=== PATIENT | female | born 1940 | race Caucasian/White ===

== ENCOUNTER → 2017-03-30 | Outpatient (CLI) | payer MEDICARE, OTHER | END | disposition home or self-care (01) | LOC: US 10:13 | DX: N63.10 Unspecified lump in the right breast, unspecified quadrant (principal) | CPT/HCPCS: 76942; C1713; G0206 ==

== ENCOUNTER 2017-04-12 07:29 | Inpatient (IN) | payer MEDICARE, OTHER ==
[~2017-04-12 07:29] MED LIST: HYDROmorphone 2 MG/ML VIAL IV; LIDOCAINE 1% PF 2 ML VIAL. ID; MORPHINE SULFATE 2 MG/ML DISP.SYRIN. IV; ONDANSETRON PF 4 MG/2 ML VIAL. IV; fentaNYL PF VIAL 100 MCG/2 ML VIAL IV
[2017-04-12 08:26] LABS: POC GLUCOSE 145 mg/dL (70-99)
[2017-04-12] MEDS: IV RINGERS,LACTATED 1000ML 1,000 ML IV (08:26)
[2017-04-12] MEDS ORDERED: MIDAZOLAM HCL/PF 2 MG/2 ML VIAL. (09:14)
[2017-04-12] MEDS ORDERED: fentaNYL PF VIAL 250 MCG/5 ML VIAL (09:14)
[2017-04-12] MEDS: LIDOCAINE WITH 8.4% SOD BICARB 3 ML DISP.SYRIN. IJ (09:41)
[2017-04-12] MEDS ORDERED: SUCCINYLCHOLINE 200 MG/10 ML VIAL. (10:06)
[2017-04-12] MEDS: ISOSULFAN BLUE 50 MG/5 ML VIAL. SQ (10:11)
[2017-04-12] MEDS ORDERED: ePHEDrine PF IN SALINE 50 MG/5 ML DISP.SYRIN IV (10:59)
[2017-04-12] MEDS ORDERED: SEVOFLURANE > 120 MINUTES. IH (11:40)
[2017-04-12] MEDS ORDERED: PROPOFOL 20 ML IV (11:40)
[2017-04-12] MEDS ORDERED: LIDOCAINE 2% PF Vial for OR 5 ML VIAL. (11:40)
[2017-04-12] MEDS ORDERED: ONDANSETRON PF 4 MG/2 ML VIAL. (11:41)
[2017-04-12] MEDS ORDERED: DEXAMETHASONE SOD PHOS 20 MG/5 ML VIAL. (11:41)
[2017-04-12 12:06] LABS: POC GLUCOSE 133 mg/dL (70-99)
[2017-04-12] MEDS: fentaNYL PF VIAL 100 MCG/2 ML VIAL IV ×2 (12:21→12:38)
[2017-04-12] MEDS: PROCHLORPERAZINE 10 MG/2 ML VIAL. IV (12:21)
[2017-04-12] MEDS ORDERED: diphenhydrAMINE HCL 25 MG CAPSULE PO (13:15)
[2017-04-12] MEDS ORDERED: LORazepam 1 MG TABLET PO (13:15)
[2017-04-12] MEDS ORDERED: 0.9 % SODIUM CHLORIDE 10 ML DISP.SYRIN. IV (13:15)
[2017-04-12] MEDS ORDERED: ONDANSETRON PF 4 MG/2 ML VIAL. IV (13:15)
[2017-04-12] MEDS ORDERED: HYDROcodone/APAP 5/325MG 1 TAB TABLET PO (13:15)
[2017-04-12] MEDS ORDERED: diphenhydrAMINE 50 MG/ML VIAL IV (13:15)
[2017-04-12] MEDS: ENOXAPARIN 40 MG/0.4 ML SYRINGE. SQ ×2 (13:15→16:00)
[2017-04-12] MEDS ORDERED: GLUCOSAMINE SULFATE PO (14:00)
[2017-04-12] MEDS: HYDROmorphone 2 MG/ML VIAL IV ×2 (14:02→19:55)
[2017-04-12] MEDS: POTASSIUM CL 20MEQ-0.45% NACL 1,000 ML IV (14:05)
[2017-04-12] MEDS: HYDROcodone/APAP 5/325MG 1 TAB TABLET PO (16:11)
[2017-04-12] MEDS: CALCIUM CARBONATE 500 MG TABLET PO (17:24)
[2017-04-12] MEDS: CARVEDILOL 12.5 MG TABLET. PO (17:26)
[2017-04-12 20:31] LABS: POC GLUCOSE 187 mg/dL (70-99)
[2017-04-12] MEDS: ATORVASTATIN CALCIUM 20 MG TABLET PO (21:14)
[2017-04-12] MEDS: traMADol 50 MG TABLET PO (21:15)
[2017-04-12] MEDS: DOCUSATE SODIUM 100 MG CAPSULE. PO (21:15)
[2017-04-13] MEDS: HYDROcodone/APAP 5/325MG 1 TAB TABLET PO ×3 (04:02→13:16)
[2017-04-13] MEDS: LEVOTHYROXINE 150 MCG TABLET PO (06:46)
[2017-04-13 07:20] LABS: POC GLUCOSE 153 mg/dL (70-99)
[2017-04-13] MEDS: metFORMIN XR 500 MG TAB.ER.24H PO (08:00)
[2017-04-13] MEDS: ASPIRIN ENTERIC COATED 81 MG TABLET.DR. PO (08:41)
[2017-04-13] MEDS: CARVEDILOL 12.5 MG TABLET. PO (08:41)
[2017-04-13] MEDS: CHOLECALCIFEROL (VITAMIN D3) 1,000 UNIT TABLET PO (08:42)
[2017-04-13] MEDS: traMADol 50 MG TABLET PO (08:42)
[2017-04-13] MEDS: DOCUSATE SODIUM 100 MG CAPSULE. PO (08:43)
[2017-04-13] MEDS: FUROSEMIDE 40 MG TABLET. PO (08:43)
[2017-04-13] MEDS: FOLIC ACID 1 MG TABLET. PO (08:43)
[2017-04-13] MEDS: MULTIVITAMIN with MINERAL TABLET. PO (08:43)
[2017-04-13] MEDS: POTASSIUM CHLORIDE 20 MEQ TABLET.ER. PO (08:44)
[2017-04-13] MEDS: LISINOPRIL 40 MG TABLET. PO (08:44)
[2017-04-13] MEDS: CALCIUM CARBONATE 500 MG TABLET PO (08:47)
[2017-04-13 11:51] LABS: POC GLUCOSE 149 mg/dL (70-99)
== END 2017-04-13 14:35 | disposition home or self-care (01) | DRG 581 ==
LOC: OPSVCIP 07:29 → 4 SOUTHWST 04-13 04:30
PROVIDERS: Surgery
PROC: 07B50ZX Excision of Right Axillary Lymphatic, Open Approach, Diagnostic (ICD-10-PCS; principal; 2017-04-12 09:30)
PROC: 0HTT0ZZ Resection of Right Breast, Open Approach (ICD-10-PCS; 2017-04-12 09:30)
PROC: C71L1ZZ Planar Nuclear Medicine Imaging of Upper Chest Lymphatics using Technetium 99m (Tc-99m) (ICD-10-PCS; 2017-04-12 09:57)
DX: C50.911 Malignant neoplasm of unspecified site of right female breast (principal); E11.9 Type 2 diabetes mellitus without complications; E03.9 Hypothyroidism, unspecified; E78.5 Hyperlipidemia, unspecified; I10 Essential (primary) hypertension; Z96.653 Presence of artificial knee joint, bilateral; Z98.49 Cataract extraction status, unspecified eye; Z90.49 Acquired absence of other specified parts of digestive tract; Z90.711 Acquired absence of uterus with remaining cervical stump
CPT/HCPCS: 38792; 82962; 88307; 88309; 88331; 88332; 88341; 88342; 96374; A9541; J0330; J0690; J0780; J1100; J1170; J2250; J2405; J2704; J3010; J7120; Q9968

== ENCOUNTER → 2017-05-05 | Outpatient (CLI) | payer MEDICARE, OTHER | END | disposition home or self-care (01) | LOC: KCIC DEXA 11:21 | DX: Z13.820 Encounter for screening for osteoporosis (principal); C50.919 Malignant neoplasm of unspecified site of unspecified female breast; E11.9 Type 2 diabetes mellitus without complications; M81.0 Age-related osteoporosis without current pathological fracture; M85.80 Other specified disorders of bone density and structure, unspecified site; Z78.0 Asymptomatic menopausal state | CPT/HCPCS: 77080 ==

== ENCOUNTER → 2017-05-29 | Outpatient (CLI) | payer MEDICARE, OTHER | END | disposition home or self-care (01) | LOC: ECHO 09:34 | DX: I42.9 Cardiomyopathy, unspecified (principal); I08.1 Rheumatic disorders of both mitral and tricuspid valves; I27.20 Pulmonary hypertension, unspecified; I70.0 Atherosclerosis of aorta | CPT/HCPCS: 93306 ==

== ENCOUNTER → 2017-07-28 | Outpatient (CLI) | payer MEDICARE, OTHER | END | disposition home or self-care (01) | LOC: US 07:40 | DX: R22.2 Localized swelling, mass and lump, trunk (principal); Z90.11 Acquired absence of right breast and nipple | CPT/HCPCS: 76604 ==

== ENCOUNTER → 2017-08-16 | Outpatient (CLI) | payer MEDICARE, OTHER | END | disposition home or self-care (01) | LOC: SPEC 16:38 | DX: L02.91 Cutaneous abscess, unspecified (principal); I13.0 Hypertensive heart and chronic kidney disease with heart failure and stage 1 through stage 4 chronic kidney disease, or unspecified chronic kidney disease; E11.22 Type 2 diabetes mellitus with diabetic chronic kidney disease; I50.21 Acute systolic (congestive) heart failure; N18.3 Chronic kidney disease, stage 3 (moderate) | CPT/HCPCS: 87205 ==

== ENCOUNTER → 2017-08-29 | Outpatient (CLI) | payer MEDICARE, OTHER | END | disposition home or self-care (01) | LOC: ECHO 09:46 | DX: I08.1 Rheumatic disorders of both mitral and tricuspid valves (principal) | CPT/HCPCS: 93306 ==

== ENCOUNTER → 2018-07-09 | Outpatient (CLI) | payer MEDICARE, OTHER ==
[2017-10-20 11:00] VITALS: BP 128/73
[~2018-07-09] MED LIST changes: +AMLO10TA8 PO; +AMLO2.5T5 PO; +ASPI-612 PO; +BENA40TA3 PO; +BISA-42 PO; +CALC-98 PO; +CALC600T4 PO; +CARV12.511 PO; +CHOL100014 PO; +COLC0.6T34 PO; +CRESTOR5 MG PO; +EXEM25TA2 PO; +FOLI1TAB16 PO; +FURO-69 PO; +FURO40TA4 PO; +GABA300C18 PO; +GLUC100018 PO; +GLUC1CAP41 PO; +HYDR-2145 PO; +HYDR-3135 PO; +HYDR-3164 PO; -HYDROmorphone 2 MG/ML VIAL IV; +LEVO150T5 PO; -LIDOCAINE 1% PF 2 ML VIAL. ID; +LORA0.5T PO; +LORA1TAB PO; +METF500T9 PO; -MORPHINE SULFATE 2 MG/ML DISP.SYRIN. IV; +MULT-208 PO; +MULT1TAB52 PO; -ONDANSETRON PF 4 MG/2 ML VIAL. IV; +POTA20TA4 PO; +TRAM50TA PO; -fentaNYL PF VIAL 100 MCG/2 ML VIAL IV
--- NOTE | 2018-07-09 15:01 | CARD ---
MR#: [id number] Date of Study: 07/09/2018 Ordering Physician: MARCO ANTONIO ROCHA, Referring Physician: MARCO ANTONIO ROCHA, Tech: Sri Valverde [facility] APPROVED REPORT EXAM: Two-dimensional and M-mode echocardiogram with Doppler and color Doppler. Other Information Quality : AverageHR: 77bpm Rhythm : Pacemaker INDICATION Shortness of breath 2D DIMENSIONS RVDd2.7 (2.9-3.5cm)Left Atrium(2D)4.7 (1.6-4.0cm) IVSd1.1 (0.7-1.1cm)Aortic Root(2D)2.6 (2.0-3.7cm) LVDd6.7 (3.9-5.9cm)LVOT Diameter1.8 (1.8-2.4cm) PWd0.9 (0.7-1.1cm)LVDs5.8 (2.5-4.0cm) FS (%) 14.3 %SV69.7 ml LVEF(%)29.7 (>50%) Aortic Valve AoV Peak Andrew.132.0cm/sAoV VTI32.2cm AO Peak GR.7.0mmHgLVOT Peak Andrew.90.8cm/s AO Mean GR.4mmHgAVA (VMAX)1.82cm2 ROMAN (VTI)1.80cm2 Mitral Valve MV E Bxfqlgds771.1cm/sMV E Peak Gr.7mmHg MV DECEL [id number] A Skdtvome140.9cm/s MV E Mean Gr.3mmHgE/A Ratio0.9 MV A [id number] Pulmonary Valve PV Peak Hosjahbl45.0cm/s Pulmonary Vein S1 Rynxlxep81.0cm/sD2 Cmfeatzh96.8cm/s PVa [id number] LEFT VENTRICLE The Left Ventricle is moderately dilated. There is normal left ventricular wall thickness. The ejecti on fraction is moderately impaired. The Ejection Fraction is 40-45%. There is global hypokinesis of t he left ventricle. Transmitral Doppler flow pattern is Grade II-pseudonormal filling dynamics. RIGHT VENTRICLE The right ventricle is normal size. There is normal right ventricular wall thickness. The right ventr icular systolic function is normal. ATRIA The left atrium is moderately dilated. The right atrium is mildly dilated. The interatrial septum is intact with no evidence for an atrial septal defect or patent foramen ovale as noted on 2-D or Dopple r imaging. AORTIC VALVE The aortic valve is normal in structure and function. The aortic valve is trileaflet. Doppler and Col or Flow revealed no significant aortic regurgitation. There is no significant aortic valvular stenosi s. There is no aortic valvular vegetation. MITRAL VALVE The mitral valve leaflets are thickened and calcified. There is no evidence of mitral valve prolapse. There is mild mitral valve stenosis. Calculated mitral valve area is 1.5 cm2 with maximum pressure g radient of 7 mmHg and mean pressure gradient of 4 mmHg. Doppler and Color-flow revealed moderate mitr al regurgitation. TRICUSPID VALVE The tricuspid valve is normal in structure and function. Doppler and Color Flow revealed no tricuspid valve regurgitation noted. There is no tricuspid valve prolapse or vegetation. There is no tricuspid valve stenosis. PULMONIC VALVE The pulmonic valve is not well visualized. GREAT VESSELS The aortic root is normal in size. The ascending aorta is normal in size. The IVC is normal in size a nd collapses >50% with inspiration. PERICARDIAL EFFUSION There is no evidence of significant pericardial effusion. Critical Notification Critical Value: No <Conclusion> The ejection fraction is moderately impaired. The Ejection Fraction is 40-45%. There is global hypokinesis of the left ventricle. Doppler and Color-flow revealed moderate mitral regurgitation. Signed by : Cal Zarate, Electronically Approved : 07/09/2018 15:00:51
== END | disposition home or self-care (01) ==
LOC: ECHO 13:02
PROVIDERS: ATTEND Internal Medicine Cardiovascular Disease
DX: I34.0 Nonrheumatic mitral (valve) insufficiency (principal)
CPT/HCPCS: 93306

== ENCOUNTER → 2018-08-16 | Outpatient (CLI) | payer MEDICARE, OTHER ==
[2017-10-20 11:00] VITALS: BP 128/73
--- NOTE | 2018-08-16 14:46 | RAD ---
Chest, 2 views, 08/16/2018: HISTORY: Shortness of breath Comparison is made to a study from 10/19/2017. The heart is enlarged. The pulmonary vascularity is normal. No pulmonary infiltrate is seen. There is no evidence of pleural fluid. Moderate hypertrophic spurring is present in the spine. IMPRESSION: 1. Cardiomegaly. 2. No acute abnormality is detected. Electronically signed by: Everette Person MD (08/16/2018 2:43 PM) [facility]
== END | disposition home or self-care (01) ==
LOC: RAD 11:02
PROVIDERS: ATTEND Internal Medicine Pulmonary Disease
DX: I51.7 Cardiomegaly (principal); M46.00 Spinal enthesopathy, site unspecified
CPT/HCPCS: 71046

== ENCOUNTER → 2018-08-30 | Outpatient (CLI) | payer MEDICARE, OTHER ==
[2017-10-20 11:00] VITALS: BP 128/73
--- NOTE | 2018-09-04 12:38 | SLEEP ---
DATE OF STUDY: 08/30/2018 ATTENDING PHYSICIAN: Dr. Yuki Grimes. REFERRING PHYSICIAN: Dr. Ray. The patient is 77 years old who weighs 212 pounds with a BMI of 37. The patient's Fairview score was 7. The patient underwent a diagnostic sleep study performed at [facility]. During the night study, the patient spent 426 minutes in bed and slept for 384 minutes with a normal sleep efficiency of 90%. Sleep latency was 5 minutes with an absent REM sleep. Overall, sleep architecture showed increased stage 1 and stage 2 sleep, absent N3 sleep and absent REM sleep. During the night study, the patient had 15 obstructive apneas, 3 mixed apneas, no central apneas and 111 hypopneas. The patient's apnea hypopnea index was 20 per hour, supine index 20 per hour. REM sleep was not observed. EKG monitoring revealed normal sinus rhythm. No sustained arrhythmias were observed. Nocturnal oximetry study revealed an average oxygen saturation of 92% with the lowest of 88%, 5.7% of time oxygen saturation remained between 80% and 89%. PLMS were not observed. Due to low AHI, the patient did not meet the split night criteria for CPAP initiation. IMPRESSION: 1. Moderate sleep apnea-hypopnea syndrome at an AHI of 20 per hour. Absence of REM sleep can underestimate the severity of sleep apnea. 2. Mild nocturnal hypoxia secondary to obstructive sleep apnea. 3. No clinically significant PLMS. RECOMMENDATIONS: 1. The patient would benefit from return to the sleep lab for CPAP titration study. Alternate treatment option would include oral appliance as recommended by the dentist. 2. Once the patient is optimally treated, then follow up in 4-6 weeks to assess compliance with treatment and to document clinical improvement. 3. Weight loss is advised. 4. Avoid LAUNCHMAN depressants. 5. Caution regarding driving until symptoms of sleep apnea resolve with the above recommendations. MARVA MARTÍNEZ MD DR: VELIA/megha JOB#: [id number] / [id number] YUKI Starkey MD, SABATO MD
== END | disposition home or self-care (01) ==
LOC: RT 19:14
PROVIDERS: ATTEND Internal Medicine Pulmonary Disease
DX: G47.33 Obstructive sleep apnea (adult) (pediatric) (principal); G47.34 Idiopathic sleep related nonobstructive alveolar hypoventilation
CPT/HCPCS: 95810

== ENCOUNTER → 2018-10-10 | Outpatient (CLI) | payer MEDICARE, OTHER ==
[2017-10-20 11:00] VITALS: BP 128/73
--- NOTE | 2018-10-11 13:12 | SLEEP ---
DATE OF STUDY: 10/10/2018 ATTENDING PHYSICIAN: Peggy Grimes MD. REFERRING PHYSICIAN: Hunter Ray MD. The patient is 77 years old who weighs 219 pounds with a BMI of 36. The patient's Stanton score was 13. The patient had a diagnostic sleep study on 08/30/2018, was found to have moderate ANNIKA at an AHI of 20 per hour. REM sleep was not seen on the night study. The patient was referred back for CPAP titration study. During the night study, the patient spent 419 minutes in bed and slept for 391 minutes with an excellent sleep efficiency of 93%. Sleep latency was 10 minutes with absent REM sleep. Overall, sleep architecture showed normal stage 1 sleep, increased stage 2 sleep, absent slow wave and absent REM sleep. EKG monitoring revealed normal sinus rhythm, average heart rate was 59 beats per minute. No arrhythmias observed. No clinically significant PLM seen. The patient was started on CPAP at a pressure of 5 cm water and titrated up to 16 cm of water. At the final pressure, the patient slept for 94 minutes. The patient had supine sleep, but no REM sleep. The patient's AHI was reduced to 2 per hour and oxygen saturations remained above 91%. The patient used a medium size full face mask. IMPRESSION: 1. Moderate sleep apnea diagnosed by previous sleep study. 2. No clinically significant periodic limb movements. RECOMMENDATIONS: 1. CPAP at 16 cm water completely eliminated the patient's sleep apnea and should be used on a nightly basis. 2. Follow up in 4-6 weeks to assess compliance with CPAP and to document clinical improvement. 3. Weight loss is strongly advised. 4. Avoid PIE MAKER depressants. 5. Caution regarding driving until symptoms of sleep apnea resolve with the use of CPAP. 6. The patient used medium size full face mask. MARVA MARTÍNEZ MD DR: VELIA/megha JOB#: [id number] / [id number]
== END | disposition home or self-care (01) ==
LOC: RT 18:56
PROVIDERS: ATTEND Internal Medicine Pulmonary Disease
DX: G47.33 Obstructive sleep apnea (adult) (pediatric) (principal)
CPT/HCPCS: 95811

== ENCOUNTER 2019-02-06 11:28 | Inpatient (IN) | payer MEDICARE, OTHER ==
[~2019-02-06] VITALS: Ht 167.6 cm; Wt 97.5 kg
[~2019-02-06 11:28] MED LIST changes: +METF500T11 PO; -METF500T9 PO
[2019-02-06] MEDS ORDERED: IV NORMAL SALINE 1000ML BAG 1,000 ML IV SCH (12:10)
[2019-02-06 12:52] LABS: BASO # 0.1 x10^3/uL (0.0-0.2); BASO % 1 % (0-3); EOS # 0.2 x10^3/uL (0.0-0.7); EOS % 2 % (0-3); HEMATOCRIT 39.9 % (36.0-47.0); HEMOGLOBIN 13.6 g/dL (12.0-15.5); LYMPH # 1.2 x10^3/uL (1.0-4.8); LYMPH % 13 % (24-48); MEAN CORPUSCULAR HEMOGLOBIN 32 pg (25-35); MEAN CORPUSCULAR HGB CONC 34 g/dL (31-37); MEAN CORPUSCULAR VOLUME 93 fL (79-100); MONO # 0.8 x10^3/uL (0.0-1.1); MONO % 8 % (0-9); NEUT # 7.4 x10^3/uL (1.8-7.7); NEUT % 77 % (31-73); PLATELET COUNT 167 x10^3/uL (140-400); RED BLOOD COUNT 4.29 x10^6/uL (3.50-5.40); RED CELL DISTRIBUTION WIDTH 14.4 % (11.5-14.5); WHITE BLOOD COUNT 9.7 x10^3/uL (4.0-11.0)
[2019-02-06 13:01] LABS: PROTHROMBIN TIME PATIENT 14.9 SEC (11.7-14.0)
[2019-02-06 13:04] LABS: CALCIUM 8.5 mg/dL (8.5-10.1); CREATININE 1.8 mg/dL (0.6-1.0); GFR 27.1; POTASSIUM 3.4 mmol/L (3.5-5.1)
[2019-02-06 13:17] LABS: ALBUMIN 2.9 g/dL (3.4-5.0); ALBUMIN/GLOBULIN RATIO 0.9 (1.0-1.7); MAGNESIUM 1.2 mg/dL (1.8-2.4); TOTAL BILIRUBIN 0.6 mg/dL (0.2-1.0); TOTAL PROTEIN 6.1 g/dL (6.4-8.2)
--- NOTE | 2019-02-06 13:19 | EKG ---
[facility] [address] [place] [address] Test Date: 2019-02-06 Test Time: 12:54:39 Pat Name: KENDY REYES Department: Room: Gender: F [employer]visor [employer]: : 1940 Requested By: KATIE MIGUEL Order Number: [id number] Reading MD: Measurements Intervals [place] Rate: 62 P: 39 OR: 164 QRS: 1 QRSD: 114 T: 31 QT: 484 QTc: 494 Interpretive Statements SINUS RHYTHM PROLONGED QT NO SPECIFIC ECG ABNORMALITIES RI6.01 No previous ECG available for comparison
[2019-02-06 13:50] LABS: BILIRUBIN,URINE NEGATIVE (NEG); CLARITY,URINE CLOUDY; COLOR,URINE YELLOW; NITRITE,URINE POSITIVE (NEG); PROTEIN,URINE 100 mg/dL (NEG-TRACE); UROBILINOGEN,URINE 0.2 mg/dL (0.2 mg/dL)
[2019-02-06 13:56] LABS: RBC,URINE OCC /HPF (0-2)
[2019-02-06 13:57] LABS: BACTERIA,URINE MANY /HPF (0-FEW); SQUAMOUS EPITHELIAL CELL,UR FEW /LPF; WBC,URINE >40 /HPF (0-4)
--- NOTE | 2019-02-06 14:36 | RAD ---
CT Head without contrast 02/06/2019 12:48 PM Indication: Fall., Dizziness Comparison: None Findings: No intracranial hemorrhage is seen. No evidence of acute territorial infarct is seen. Note that CT is limited in sensitivity for acute ischemia. Age-related atrophic changes are noted. There is mild patchy periventricular and deep white matter hypoattenuation which is nonspecific, but most commonly relates to chronic small vessel disease. No abnormal extra axial fluid collection is identified. No mass effect or midline shift is seen. No acute osseous abnormalities are seen. Impression: 1. No acute intracranial process identified 2. Mild Age-related atrophy, and evidence of chronic small vessel disease as described CT DOSING PQRS STATEMENT: One or more of the following individualized dose reduction techniques were utilized for this examination: 1. Automated exposure control 2. Adjustment of the mA and/or kV according to patient size 3. Use of iterative reconstruction technique Electronically signed by: Maulik Carrasco MD (02/06/2019 2:33 PM) [facility]
--- NOTE | 2019-02-06 14:47 | PHYS DOC ---
Past Medical History Past Medical History: CHF, Diabetes-Type II, Hypertension, Hypothyroid, Other Additional Past Medical Histor: CHRONIC BACK PAIN,NEUROPATHY,CHRONIC DIARRHEA & BLOOD IN STOOL Past Surgical History: Hysterectomy, Tonsillectomy, Other Additional Past Surgical Histo: BACK,HEMORRHOID,KNEE,THYROID X 2,RETINA REATTACHMENT,CATARACT,CARPAL TUNNEL Alcohol Use: None Drug Use: None Adult General Chief Complaint Chief Complaint: WEAKNESS/GENERALIZED HPI HPI Patient is a 78 year old female patient history of chronic diarrhea who presents with complaining of diarrhea and weakness and fall. Patient states she has had increase of diarrhea and had more than 10 episodes of diarrhea every day and complaining of generalized weakness and he states she had 2 falls 5 days ago with dizziness and possible loss of consciousness. She denies chest pain, shortness of breath, focal neuro deficit, urinary symptom. Patient states she is taking care of her sick at home and unable to taking care of him as of her illness. Review of Systems Review of Systems Constitutional: Denies fever or chills [] Eyes: Denies change in visual acuity, redness, or eye pain [] HENT: Denies nasal congestion or sore throat [] Respiratory: Denies cough or shortness of breath [] Cardiovascular: No additional information not addressed in HPI [] GI: Denies abdominal pain, nausea, vomiting, bloody stools, reports diarrhea [] : Denies dysuria or hematuria [] Musculoskeletal: Denies back pain or joint pain [] Integument: Denies rash or skin lesions [] Neurologic: Denies headache, focal weakness or sensory changes [] Endocrine: Denies polyuria or polydipsia [] All other systems were reviewed and found to be within normal limits, except as documented in this note. Current Medications Current Medications Current Medications Medications (Trade) Dose Ordered Sig/Hesham Start Time Stop Time Status Last Admin Dose Admin Sodium Chloride 1,000 ml @ 200 mls/hr Q5H 02/06/19 12:10 02/06/19 15:40 DC 02/06/19 13:19 200 MLS/HR Allergies Allergies Allergies Coded Allergies Type Severity Reaction Last Updated Verified Sulfa (Sulfonamide Antibiotics) Allergy Intermediate HIVES 04/10/17 Yes morphine Adverse Reaction Intermediate Nausea 04/10/17 Yes Physical Exam Physical Exam Constitutional: Well developed, well nourished, mild distress, non-toxic appearance. [] HENT: Normocephalic, atraumatic. Eyes: PERRLA, EOMI, conjunctiva normal, no discharge. [] Neck: Normal range of motion, no tenderness, supple, no stridor. [] Cardiovascular:Heart rate regular rhythm, no murmur [] Lungs & Thorax: Bilateral breath sounds clear to auscultation [] Abdomen: Bowel sounds normal, soft, no tenderness, no masses, no pulsatile masses. [] Skin: Warm, dry, no erythema, no rash. [] Back: No tenderness, no CVA tenderness. [] Extremities: No tenderness, no cyanosis, no clubbing, ROM intact, no edema. [] Neurologic: Alert and oriented X 3, no focal deficits noted. [] Psychologic: Affect normal, judgement normal, mood normal. [] Current Patient Data Vital Signs Vital Signs Date Time Temp Pulse Resp B/P (MAP) Pulse Ox O2 Delivery O2 Flow Rate FiO2 02/06/19 14:05 66 20 97 02/06/19 11:35 97.5 150/67 (94) Room Air 97.5 Lab Values Laboratory Tests Test 02/06/19 12:30 02/06/19 13:40 White Blood Count 9.7 x10^3/uL (4.0-11.0) Red Blood Count 4.29 x10^6/uL (3.50-5.40) Hemoglobin 13.6 g/dL (12.0-15.5) Hematocrit 39.9 % (36.0-47.0) Mean Corpuscular Volume 93 fL (79-100) Mean Corpuscular Hemoglobin 32 pg (25-35) Mean Corpuscular Hemoglobin Concent 34 g/dL (31-37) Red Cell Distribution Width 14.4 % (11.5-14.5) Platelet Count 167 x10^3/uL (140-400) Neutrophils (%) (Auto) 77 % (31-73) H Lymphocytes (%) (Auto) 13 % (24-48) L Monocytes (%) (Auto) 8 % (0-9) Eosinophils (%) (Auto) 2 % (0-3) Basophils (%) (Auto) 1 % (0-3) Neutrophils # (Auto) 7.4 x10^3/uL (1.8-7.7) Lymphocytes # (Auto) 1.2 x10^3/uL (1.0-4.8) Monocytes # (Auto) 0.8 x10^3/uL (0.0-1.1) Eosinophils # (Auto) 0.2 x10^3/uL (0.0-0.7) Basophils # (Auto) 0.1 x10^3/uL (0.0-0.2) Prothrombin Time 14.9 SEC (11.7-14.0) H Prothrombin Time INR 1.2 (0.8-1.1) H Sodium Level 142 mmol/L (136-145) Potassium Level 3.4 mmol/L (3.5-5.1) L Chloride Level 104 mmol/L (98-107) Carbon Dioxide Level 25 mmol/L (21-32) Anion Gap 13 (6-14) Blood Urea Nitrogen 28 mg/dL (7-20) H Creatinine 1.8 mg/dL (0.6-1.0) H Estimated GFR (Cockcroft-Gault) 27.1 BUN/Creatinine Ratio 16 (6-20) Glucose Level 171 mg/dL (70-99) H Lactic Acid Level 1.1 mmol/L (0.4-2.0) Calcium Level 8.5 mg/dL (8.5-10.1) Magnesium Level 1.2 mg/dL (1.8-2.4) L Total Bilirubin 0.6 mg/dL (0.2-1.0) Aspartate Amino Transferase (AST) 11 U/L (15-37) L Alanine Aminotransferase (ALT) 11 U/L (14-59) L Alkaline Phosphatase 75 U/L (46-116) Creatine Kinase 62 U/L (26-192) Troponin I Quantitative 0.080 ng/mL (0.000-0.055) NW-Erv-F-Type Natriuretic Peptide 90298 pg/mL (0-449) H Total Protein 6.1 g/dL (6.4-8.2) L Albumin 2.9 g/dL (3.4-5.0) L Albumin/Globulin Ratio 0.9 (1.0-1.7) L Lipase 37 U/L (73-393) L Urine Collection Type U cath Urine Color Yellow Urine Clarity Cloudy Urine pH 5.0 Urine Specific [place] 1.015 Urine Protein 100 mg/dL (NEG-TRACE) Urine Glucose (UA) Negative mg/dL (NEG) Urine Ketones (Stick) Negative mg/dL (NEG) Urine Blood Moderate (NEG) Urine Nitrite Positive (NEG) Urine Bilirubin Negative (NEG) Urine Urobilinogen Dipstick 0.2 mg/dL (0.2 mg/dL) Urine Leukocyte Esterase Large (NEG) Urine RBC Occ /HPF (0-2) Urine WBC >40 /HPF (0-4) Urine Squamous Epithelial Cells Few /LPF Urine Transitional Epithelial Cells Occ /LPF Urine Bacteria Many /HPF (0-FEW) Laboratory Tests 02/06/19 12:30 Laboratory Tests 02/06/19 12:30 EKG EKG EKG interpreted by me. EKG at 1254 showed normal sinus rhythm at rate of 62, prolonged QT at 484, no acute ST and T-wave elevation. Radiology/Procedures Radiology/Procedures [][facility] [address] [place] [address] IMAGING REPORT Signed PATIENT: KENDY REYES ACCOUNT: [id number] : 1940 LOCATION: ER AGE: 78 SEX: F EXAM STATUS: REG ER ORD. PHYSICIAN: KATIE MIGUEL MD REASON: dizziness and fall PROCEDURE: CT HEAD WO CONTRAST CT Head without contrast 02/06/2019 12:48 PM Indication: Fall., Dizziness Comparison: None Findings: No intracranial hemorrhage is seen. No evidence of acute territorial infarct is seen. Note that CT is limited in sensitivity for acute ischemia. Age-related atrophic changes are noted. There is mild patchy periventricular and deep white matter hypoattenuation which is nonspecific, but most commonly relates to chronic small vessel disease. No abnormal extra axial fluid collection is identified. No mass effect or midline shift is seen. No acute osseous abnormalities are seen. Impression: 1. No acute intracranial process identified 2. Mild Age-related atrophy, and evidence of chronic small vessel disease as described CT DOSING PQRS STATEMENT: One or more of the following individualized dose reduction techniques were utilized for this examination: 1. Automated exposure control 2. Adjustment of the mA and/or kV according to patient size 3. Use of iterative reconstruction technique Electronically signed by: Maulik Cain MD (02/06/2019 2:33 PM) [facility] DICTATED and SIGNED BY: MAULIK CAIN MD DATE: 02/06/19 1433 Course & Med Decision Making Course & Med Decision Making Pertinent Labs and Imaging studies reviewed. (See chart for details) Evaluation of patient in ER showed 78 old female patient with complaining of diarrhea and generalized weakness and fall because of dizziness. Magnesium was 1.2. Labs showed UTI without elevation of lactic acid or leukocytosis.labs showed elevation of troponin and BNP without change compared to previous numbers. Patient requiring admission for further evaluation and treatment. Discussed with Dr. Celaya who is in agreement with admission. Discussed findings and plan with patient and family, who acknowledge understanding and agreement. Dragon Disclaimer Dragon Disclaimer This electronic medical record was generated, in whole or in part, using a voice recognition dictation system. Departure Departure Impression: Primary Impression: Generalized weakness Additional Impressions: Diarrhea CHF (congestive heart failure) Fall Elevated troponin I level Urinary tract infection Hypomagnesemia Disposition: 09 ADMITTED INPATIENT (at 1431) Admitting Physician: MIGUE (Dr. Verdugo accepted admission at 1430) Condition: IMPROVED Referrals: YUKI KEMP MD (PCP) Problem Qualifiers Additional Impressions: Diarrhea Diarrhea type: unspecified type Qualified Codes: R19.7 - Diarrhea, unspecified CHF (congestive heart failure) Heart failure type: unspecified Heart failure chronicity: unspecified Qualified Codes: I50.9 - Heart failure, unspecified Fall Encounter type: sequela Qualified Codes: W19.XXXS - Unspecified fall, sequela Urinary tract infection Urinary tract infection type: site unspecified Hematuria presence: without hematuria Qualified Codes: N39.0 - Urinary tract infection, site not specified KATIE MIGUEL MD Feb 06, 2019 14:47
[2019-02-06] MEDS ORDERED: ONDANSETRON PF 4 MG/2 ML VIAL. IV PRN (15:00)
--- NOTE | 2019-02-06 15:43 | PDOC1 ---
History and Physical Date of Admission Date of Admission DATE: 02/06/19 TIME: 15:35 Source Source: Chart review, Patient History of Present Illness History of Present Illness MS. Patricia presented today with weakness, lethagy, abd pain and diarrhea for 5 days. She also complains of 2 falls recently, she feels like she "blacks out' then falls, and has no prior report of syncope, Her protection officer is Dr. Cespedes, and her heart disease, she thinks has been stable she cares for her at home, who has had a stroke recently, and she has not been too weak to do so, and is concerned by the falls, She has CHF, but she feels dry and is very thirsty, asked me for ice water in the ER Past Medical History Cardiovascular: CHF, HTN, Hyperlipidemia, Other Pulmonary: No pertinent hx GI: Diverticulosis, Hemorrhoids Heme/Onc: Anemia NOS, Cancer Hepatobiliary: No pertinent hx Psych: No pertinent hx Musculoskeletal: low back pain Rheumatologic: No pertinent hx Infectious disease: No pertinent hx Renal/: Chronic renal insuff Endocrine: Diabetes, Hypothyroidism Past Surgical History Past Surgical History: Breast Biopsy, Cataract Removal, Mastectomy, Hysterectomy, Other Family History Family History: Cancer Social History Smoke: No ALCOHOL: rare Drugs: None Current Problem List Problem List Problems Medical Problems: (1) Diarrhea Status: Acute (2) Elevated troponin I level Status: Acute (3) Fall Status: Acute (4) Generalized weakness Status: Acute Current Medications Current Medications Current Medications Sodium Chloride 1,000 ml @ 200 mls/hr Q5H IV Last administered on 02/06/19at 13:19; Start 02/06/19 at 12:10; Stop 02/06/19 at 17:09 Ondansetron HCl (Zofran) 4 mg PRN Q8HRS PRN IV NAUSEA/VOMITING; Start 02/06/19 at 15:00; Stop 02/06/19 at 20:00 Active Scripts Active Amlodipine Besylate 2.5 Mg Tablet 2.5 Mg PO DAILY 30 Days Colcrys (Colchicine) 0.6 Mg Tablet 1 Tab PO BID Klor-Con M20 (Potassium Chloride) 20 Meq Tab.er.prt 20 Meq PO DAILYWBKFT 30 Days Aspirin Ec (Aspirin) 81 Mg Tablet. 81 Mg PO DAILYWBKFT 30 Days Reported Dulcolax (Bisacodyl) 5 Mg Tablet.dr 5 Mg PO PRN DAILY PRN Exemestane 25 Mg Tablet 25 Mg PO DAILY Gabapentin 300 Mg Capsule 300 Mg PO BID Multivitamins (Multivitamin) 1 Each Tablet 1 Tab PO DAILY Glucosamine (Glucosamine Sulfate 2KCL) 1,000 Mg Tablet 500 Mg PO TID Calcium (Calcium Carbonate) 600 Mg Tablet 600 Mg PO BID Carvedilol 12.5 Mg Tablet 12.5 Mg PO BID Lasix (Furosemide) 20 Mg Tablet 20 Mg PO DAILY [place] 10-325 Tablet (Acetaminophen/Hydrocodone Bitart) 1 Each Tablet 1 Tab PO PRN Q4-6HRS PRN Tramadol Hcl 50 Mg Tablet 1 Tab PO BID Folic Acid 1 Mg Tablet 400 Mcg PO DAILY Vitamin D3 (Cholecalciferol (Vitamin D3)) 1,000 Unit Capsule 1,000 Unit PO BID Levothyroxine Sodium 150 Mcg Tablet 1 Tab PO DAILY-2TABS WED-SAT Crestor (Rosuvastatin Calcium) 5 Mg Tablet 1 Tab PO DAILY Allergies Allergies: Coded Allergies: Sulfa (Sulfonamide Antibiotics) (Verified Allergy, Intermediate, HIVES, 04/10/17) morphine (Verified Adverse Reaction, Intermediate, Nausea, 04/10/17) ROS General: No: Chills, Night Sweats, Fatigue, Malaise, Appetite, Other PSYCHOLOGICAL ROS: No: Anxiety, Behavioral Disorder, Concentration difficultie, Decreased libido, Depression, Disorientation, Hallucinations, Hostility, Irritablity, Memory difficulties, Mood Swings, Obsessive thoughts, Physical abuse, Sexual abuse, Sleep disturbances, Suicidal ideation, Other Eyes: No Blurry vision, No Decreased vision, No Double vision, No Dry eyes, No Excessive tearing, No Eye Pain, No Itchy Eyes, No Loss of vision, No Photophobia, No Scotomata, No Uses contacts, No Uses glasses, No Other HEENT: YES: Other (dry mouth); No: Heacaches, Visual Changes, Hearing change, Nasal congestion, Nasal discharge, Oral lesions, Sinus pain, Sore Throat, Epistaxis, Sneezing, Snoring, Tinnitus, Vertigo, Vocal changes Respiratory: YES: Cough; No: Hemoptysis, Orthopnea, Pleuritic Pain, Shortness of breath, SOB with excertion, Sputum Changes, Stridor, Tachypnea, Wheezing, Other Cardiovascular: No Chest Pain, No Palpitations, No Orthopnea, No Paroxysmal Noc. Dyspnea, No Edema, No Lt Headedness, No Other Gastrointestinal: Yes Nausea, Yes Abdominal Pain, Yes Diarrhea Genitourinary: No Dysuria, No Frequency, No Incontinence, No Hematuria, No Retention, No Discharge, No Urgency, No Pain, No Flank Pain, No Other, No , No , No , No , No , No , No Musculoskeletal: Yes Joint Pain, Yes Joint Stiffness, Yes Muscular Weakness Neurological: No Behavorial Changes, No Bowel/Bladder ControlChng, No Confusion, No Dizziness, No Gait Disturbance, No Headaches, No Impaired Coord/balance, No Memory Loss, No Numbness/Tingling, No Seizures, No Speech Problems, No Tremors, No Visual Changes, No Weakness, No Other Skin: No Dry Skin, No Eczema, No Hair Changes, No Lumps, No Mole Changes, No Mottling, No Nail Changes, No Pruritus, No Rash, No Skin Lesion Changes, No Other, No Acne Physical Exam General: Alert, Cooperative, mild distress HEENT: PERRLA, Mucous membr. moist/pink Lungs: Clear to auscultation Heart: no gallops, no murmurs, irregularly irregular Abdomen: Normal bowel sounds Male Genitals Exam: normal genitalia Extremities: No cyanosis, Normal pulses, Other (tr edema) Skin: No rashes, No significant lesion, Other (dry skin, poor turgor) Neuro: Normal speech, Normal tone, Cranial nerves 3-12 NL Psych/Mental Status: Mental status NL Vitals Vitals Vital Signs Date Time Temp Pulse Resp B/P (MAP) Pulse Ox O2 Delivery O2 Flow Rate FiO2 02/06/19 14:35 69 02/06/19 14:05 20 97 02/06/19 11:35 97.5 150/67 (94) Room Air 97.5 Labs Labs Laboratory Tests Test 02/06/19 12:30 02/06/19 13:40 White Blood Count 9.7 x10^3/uL (4.0-11.0) Red Blood Count 4.29 x10^6/uL (3.50-5.40) Hemoglobin 13.6 g/dL (12.0-15.5) Hematocrit 39.9 % (36.0-47.0) Mean Corpuscular Volume 93 fL (79-100) Mean Corpuscular Hemoglobin 32 pg (25-35) Mean Corpuscular Hemoglobin Concent 34 g/dL (31-37) Red Cell Distribution Width 14.4 % (11.5-14.5) Platelet Count 167 x10^3/uL (140-400) Neutrophils (%) (Auto) 77 % (31-73) Lymphocytes (%) (Auto) 13 % (24-48) Monocytes (%) (Auto) 8 % (0-9) Eosinophils (%) (Auto) 2 % (0-3) Basophils (%) (Auto) 1 % (0-3) Neutrophils # (Auto) 7.4 x10^3/uL (1.8-7.7) Lymphocytes # (Auto) 1.2 x10^3/uL (1.0-4.8) Monocytes # (Auto) 0.8 x10^3/uL (0.0-1.1) Eosinophils # (Auto) 0.2 x10^3/uL (0.0-0.7) Basophils # (Auto) 0.1 x10^3/uL (0.0-0.2) Prothrombin Time 14.9 SEC (11.7-14.0) Prothromb Time International Ratio 1.2 (0.8-1.1) Sodium Level 142 mmol/L (136-145) Potassium Level 3.4 mmol/L (3.5-5.1) Chloride Level 104 mmol/L (98-107) Carbon Dioxide Level 25 mmol/L (21-32) Anion Gap 13 (6-14) Blood Urea Nitrogen 28 mg/dL (7-20) Creatinine 1.8 mg/dL (0.6-1.0) Estimated GFR (Cockcroft-Gault) 27.1 BUN/Creatinine Ratio 16 (6-20) Glucose Level 171 mg/dL (70-99) Lactic Acid Level 1.1 mmol/L (0.4-2.0) Calcium Level 8.5 mg/dL (8.5-10.1) Magnesium Level 1.2 mg/dL (1.8-2.4) Total Bilirubin 0.6 mg/dL (0.2-1.0) Aspartate Amino Transf (AST/SGOT) 11 U/L (15-37) Alanine Aminotransferase (ALT/SGPT) 11 U/L (14-59) Alkaline Phosphatase 75 U/L (46-116) Creatine Kinase 62 U/L (26-192) Troponin I Quantitative 0.080 ng/mL (0.000-0.055) AI-Kcd-X-Type Natriuretic Peptide 41443 pg/mL (0-449) Total Protein 6.1 g/dL (6.4-8.2) Albumin 2.9 g/dL (3.4-5.0) Albumin/Globulin Ratio 0.9 (1.0-1.7) Lipase 37 U/L (73-393) Urine Collection Type U cath Urine Color Yellow Urine Clarity Cloudy Urine pH 5.0 Urine Specific [place] 1.015 Urine Protein 100 mg/dL (NEG-TRACE) Urine Glucose (UA) Negative mg/dL (NEG) Urine Ketones (Stick) Negative mg/dL (NEG) Urine Blood Moderate (NEG) Urine Nitrite Positive (NEG) Urine Bilirubin Negative (NEG) Urine Urobilinogen Dipstick 0.2 mg/dL (0.2 mg/dL) Urine Leukocyte Esterase Large (NEG) Urine RBC Occ /HPF (0-2) Urine WBC >40 /HPF (0-4) Urine Squamous Epithelial Cells Few /LPF Urine Transitional Epithelial Cells Occ /LPF Urine Bacteria Many /HPF (0-FEW) Laboratory Tests Test 02/06/19 12:30 02/06/19 13:40 White Blood Count 9.7 x10^3/uL (4.0-11.0) Red Blood Count 4.29 x10^6/uL (3.50-5.40) Hemoglobin 13.6 g/dL (12.0-15.5) Hematocrit 39.9 % (36.0-47.0) Mean Corpuscular Volume 93 fL (79-100) Mean Corpuscular Hemoglobin 32 pg (25-35) Mean Corpuscular Hemoglobin Concent 34 g/dL (31-37) Red Cell Distribution Width 14.4 % (11.5-14.5) Platelet Count 167 x10^3/uL (140-400) Neutrophils (%) (Auto) 77 % (31-73) Lymphocytes (%) (Auto) 13 % (24-48) Monocytes (%) (Auto) 8 % (0-9) Eosinophils (%) (Auto) 2 % (0-3) Basophils (%) (Auto) 1 % (0-3) Neutrophils # (Auto) 7.4 x10^3/uL (1.8-7.7) Lymphocytes # (Auto) 1.2 x10^3/uL (1.0-4.8) Monocytes # (Auto) 0.8 x10^3/uL (0.0-1.1) Eosinophils # (Auto) 0.2 x10^3/uL (0.0-0.7) Basophils # (Auto) 0.1 x10^3/uL (0.0-0.2) Prothrombin Time 14.9 SEC (11.7-14.0) Prothromb Time International Ratio 1.2 (0.8-1.1) Sodium Level 142 mmol/L (136-145) Potassium Level 3.4 mmol/L (3.5-5.1) Chloride Level 104 mmol/L (98-107) Carbon Dioxide Level 25 mmol/L (21-32) Anion Gap 13 (6-14) Blood Urea Nitrogen 28 mg/dL (7-20) Creatinine 1.8 mg/dL (0.6-1.0) Estimated GFR (Cockcroft-Gault) 27.1 BUN/Creatinine Ratio 16 (6-20) Glucose Level 171 mg/dL (70-99) Lactic Acid Level 1.1 mmol/L (0.4-2.0) Calcium Level 8.5 mg/dL (8.5-10.1) Magnesium Level 1.2 mg/dL (1.8-2.4) Total Bilirubin 0.6 mg/dL (0.2-1.0) Aspartate Amino Transf (AST/SGOT) 11 U/L (15-37) Alanine Aminotransferase (ALT/SGPT) 11 U/L (14-59) Alkaline Phosphatase 75 U/L (46-116) Creatine Kinase 62 U/L (26-192) Troponin I Quantitative 0.080 ng/mL (0.000-0.055) YP-Ehi-A-Type Natriuretic Peptide 65090 pg/mL (0-449) Total Protein 6.1 g/dL (6.4-8.2) Albumin 2.9 g/dL (3.4-5.0) Albumin/Globulin Ratio 0.9 (1.0-1.7) Lipase 37 U/L (73-393) Urine Collection Type U cath Urine Color Yellow Urine Clarity Cloudy Urine pH 5.0 Urine Specific [place] 1.015 Urine Protein 100 mg/dL (NEG-TRACE) Urine Glucose (UA) Negative mg/dL (NEG) Urine Ketones (Stick) Negative mg/dL (NEG) Urine Blood Moderate (NEG) Urine Nitrite Positive (NEG) Urine Bilirubin Negative (NEG) Urine Urobilinogen Dipstick 0.2 mg/dL (0.2 mg/dL) Urine Leukocyte Esterase Large (NEG) Urine RBC Occ /HPF (0-2) Urine WBC >40 /HPF (0-4) Urine Squamous Epithelial Cells Few /LPF Urine Transitional Epithelial Cells Occ /LPF Urine Bacteria Many /HPF (0-FEW) VTE Prophylaxis Ordered VTE Prophylaxis Devices: Yes VTE Pharmacological Prophylaxi: Contraindicated Assessment/Plan Assessment/Plan syncope, admit to tele, consult CV acute on chronic systolic CHF, fluid given by ER team diarrhea, acute viral likely, consult GI, may need retana UTI, rocephin appears intracellularly dry, hypokalemia, hypomag, morbid obesity, BMI 35, with moderate malnutrition CKD3, her cr has been 2.0 and 1.5 before JOSIAH TOBIAS MD Feb 06, 2019 15:43
[2019-02-06] MEDS ORDERED: MAGNESIUM SULFATE 4GM 100 ML IV ONE (16:00)
[2019-02-06] MEDS ORDERED: cefTRIAXone IV Push 1 GM VIAL. IVP ONE (16:00)
[2019-02-06] MEDS ORDERED: CARV25TA2 PO (17:56)
[2019-02-06] MEDS ORDERED: CRESTOR5 MG PO (17:56)
[2019-02-06] MEDS ORDERED: LEVOTHYROXINE 150 MCG TABLET PO PRN (18:00)
[2019-02-06] MEDS ORDERED: CALC500T31 PO (18:00)
--- NOTE | 2019-02-06 18:00 | NUR ---
Patient arrived to room 252 via wheelchair, transferred with minimal assist. Blood pressure elevated, Dr. singh notified and orders received. No complaints at the moment. WIll continue to monitor.
[2019-02-06] MEDS ORDERED: GLUC-158 PO (18:06)
[2019-02-06] MEDS ORDERED: DULO20CA PO (18:08)
[2019-02-06] MEDS ORDERED: DIPH25CA58 PO (18:08)
[2019-02-06] MEDS ORDERED: BENA40TA3 PO (18:08)
[2019-02-06 18:11] VITALS: BP 191/108
[2019-02-06] MEDS: CARVEDILOL 12.5 MG TABLET. PO SCH (18:46)
[2019-02-06] MEDS ORDERED: GLUCOS SUL PO SCH (21:00)
[2019-02-06] MEDS ORDERED: [UNRECOGNIZED DRUG - OTHER] PO SCH (21:00)
[2019-02-06] MEDS ORDERED: POTASSIUM CHLORIDE 20 MEQ TABLET.ER. PO ONE (22:00)
[2019-02-06] MEDS: diphenhydrAMINE HCL 25 MG CAPSULE PO SCH (22:18)
[2019-02-06] MEDS: CALCIUM CARBONATE 500 MG TABLET PO SCH (22:18)
[2019-02-06] MEDS: ATORVASTATIN CALCIUM 20 MG TABLET PO SCH (22:19)
[2019-02-06] MEDS: GABAPENTIN 300 MG CAPSULE. PO SCH (22:19)
[2019-02-06] MEDS: HYDROcodone/APAP 10/325 1 TAB TABLET PO PRN (22:21)
[2019-02-06 22:48] VITALS: BP 175/82
[2019-02-07 02:45] VITALS: BP 168/78
[2019-02-07] MEDS: LEVOTHYROXINE 150 MCG TABLET PO SCH (05:56)
[2019-02-07 07:25] VITALS: BP 182/91
[2019-02-07 07:50] LABS: ALBUMIN 2.8 g/dL (3.4-5.0); ALBUMIN/GLOBULIN RATIO 0.9 (1.0-1.7); CALCIUM 8.5 mg/dL (8.5-10.1); CREATININE 1.6 mg/dL (0.6-1.0); MAGNESIUM 2.2 mg/dL (1.8-2.4); POTASSIUM 3.6 mmol/L (3.5-5.1); TOTAL BILIRUBIN 0.5 mg/dL (0.2-1.0)
[2019-02-07 07:57] LABS: BASO % 0 % (0-3); EOS # 0.4 x10^3/uL (0.0-0.7); EOS % 5 % (0-3); HEMOGLOBIN 13.8 g/dL (12.0-15.5); LYMPH # 1.2 x10^3/uL (1.0-4.8); LYMPH % 15 % (24-48); MEAN CORPUSCULAR HEMOGLOBIN 32 pg (25-35); MEAN CORPUSCULAR HGB CONC 34 g/dL (31-37); MEAN CORPUSCULAR VOLUME 95 fL (79-100); MONO # 0.6 x10^3/uL (0.0-1.1); MONO % 7 % (0-9); NEUT # 5.9 x10^3/uL (1.8-7.7); NEUT % 72 % (31-73); PLATELET COUNT 171 x10^3/uL (140-400); RED CELL DISTRIBUTION WIDTH 14.7 % (11.5-14.5); WHITE BLOOD COUNT 8.1 x10^3/uL (4.0-11.0)
[2019-02-07] MEDS ORDERED: IPRATRPIUM/ALBUTEROL 0.5/2.5MG 3 ML NEBU. NEB ONE (08:00)
[2019-02-07] MEDS ORDERED: CARVEDILOL 12.5 MG TABLET. PO SCH (08:00)
[2019-02-07] MEDS: NON FORMULARY ITEM (Exemestane 25 MG) PO SCH (09:00)
[2019-02-07] MEDS: MULTIVITAMIN with MINERAL TABLET. PO SCH (09:04)
[2019-02-07] MEDS: FOLIC ACID 1 MG TABLET. PO SCH (09:05)
[2019-02-07] MEDS: GABAPENTIN 300 MG CAPSULE. PO SCH ×2 (09:05→19:40)
[2019-02-07] MEDS: ASPIRIN ENTERIC COATED 81 MG TABLET.DR. PO SCH (09:05)
[2019-02-07] MEDS: CARVEDILOL 12.5 MG TABLET. PO SCH ×2 (09:05→16:43)
[2019-02-07] MEDS: CALCIUM CARBONATE 500 MG TABLET PO SCH ×2 (09:05→19:40)
[2019-02-07] MEDS: POTASSIUM CHLORIDE 20 MEQ TABLET.ER. PO SCH (09:05)
[2019-02-07] MEDS: FUROSEMIDE 20 MG TABLET PO SCH (09:06)
[2019-02-07] MEDS: DULoxetine HCL 20 MG CAPSULE.DR PO SCH (09:06)
[2019-02-07] MEDS: LISINOPRIL 20 MG TABLET PO SCH (09:06)
--- NOTE | 2019-02-07 10:02 | PDOC2 ---
GI CONSULT Reason For Consult: Diarrhea HPI: HPI: 78 y/o female who is a little forgetful. Reports 4 days of diarrhea and "blacking out" twice at home. [place] weak and short of breath. No diarrhea since admission. Thinks she was stooling about 7-8 times daily at home - normally stools 5-8 times daily - occasionally watery. Not really sure if this was out of the ordinary for her. In the past reported chronic diarrhea since improved w/ Imodium. Still takes Imodium but not as often. Denies reflux/heartburn, dysphagia, n/v, change in appetite, abd pain, hemat ochezia, melena, constipation, or weight loss. No previous EGD. Colonoscopy 11/2016: ischemic "colitis" (distal to splenic flexure to mid/distal sigmoid), diverticulosis, internal hemorrhoids, anterior anal sphincter defect. No GB, liver, pancreas, or PUD history. Takes Aleve sometimes. No GI concerns per nurse. PMH: PMH: CHF, cardiomyopathy, AR, HTN, HLD, DM, hypothyroidism, breast cancer, ischemic colitis, diverticulosis, hemorrhoids, CKD partial hysterectomy, back surgery, hemorrhoidectomy, thyroidectomy, bilateral knee replacements, right shoulder surgery, retinal detachment, right CTR, right sentinel lymph node biopsy (05/20 positive), right modified radical mastectomy FH: Family History: No pertinent hx Social History: Smoke: No ALCOHOL: rare Drugs: None ROS: GEN: Denies fevers, chills, sweats HEENT: Denies blurred vision, sore throat CV: Denies chest pain RESP: +SOA GI: Per HPI : Denies hematuria, dysuria ENDO: Denies weight changes NEURO: "blacking out" MSK: +weakness SKIN: Denies jaundice, pruritus Vitals: Vitals: Vital Signs Date Time Temp Pulse Resp B/P (MAP) Pulse Ox O2 Delivery O2 Flow Rate FiO2 02/07/19 09:06 85 02/07/19 08:20 99 Room Air 02/07/19 07:25 97.6 20 182/91 (121) 97.6 Labs: Labs: Laboratory Tests Test 02/06/19 12:30 02/06/19 13:40 02/06/19 18:30 02/07/19 07:15 White Blood Count 9.7 x10^3/uL (4.0-11.0) 8.1 x10^3/uL (4.0-11.0) Red Blood Count 4.29 x10^6/uL (3.50-5.40) 4.30 x10^6/uL (3.50-5.40) Hemoglobin 13.6 g/dL (12.0-15.5) 13.8 g/dL (12.0-15.5) Hematocrit 39.9 % (36.0-47.0) 41.0 % (36.0-47.0) Mean Corpuscular Volume 93 fL (79-100) 95 fL (79-100) Mean Corpuscular Hemoglobin 32 pg (25-35) 32 pg (25-35) Mean Corpuscular Hemoglobin Concent 34 g/dL (31-37) 34 g/dL (31-37) Red Cell Distribution Width 14.4 % (11.5-14.5) 14.7 % (11.5-14.5) Platelet Count 167 x10^3/uL (140-400) 171 x10^3/uL (140-400) Neutrophils (%) (Auto) 77 % (31-73) 72 % (31-73) Lymphocytes (%) (Auto) 13 % (24-48) 15 % (24-48) Monocytes (%) (Auto) 8 % (0-9) 7 % (0-9) Eosinophils (%) (Auto) 2 % (0-3) 5 % (0-3) Basophils (%) (Auto) 1 % (0-3) 0 % (0-3) Neutrophils # (Auto) 7.4 x10^3/uL (1.8-7.7) 5.9 x10^3/uL (1.8-7.7) Lymphocytes # (Auto) 1.2 x10^3/uL (1.0-4.8) 1.2 x10^3/uL (1.0-4.8) Monocytes # (Auto) 0.8 x10^3/uL (0.0-1.1) 0.6 x10^3/uL (0.0-1.1) Eosinophils # (Auto) 0.2 x10^3/uL (0.0-0.7) 0.4 x10^3/uL (0.0-0.7) Basophils # (Auto) 0.1 x10^3/uL (0.0-0.2) 0.0 x10^3/uL (0.0-0.2) Prothrombin Time 14.9 SEC (11.7-14.0) Prothromb Time International Ratio 1.2 (0.8-1.1) Sodium Level 142 mmol/L (136-145) 143 mmol/L (136-145) Potassium Level 3.4 mmol/L (3.5-5.1) 3.6 mmol/L (3.5-5.1) Chloride Level 104 mmol/L (98-107) 106 mmol/L (98-107) Carbon Dioxide Level 25 mmol/L (21-32) 24 mmol/L (21-32) Anion Gap 13 (6-14) 13 (6-14) Blood Urea Nitrogen 28 mg/dL (7-20) 23 mg/dL (7-20) Creatinine 1.8 mg/dL (0.6-1.0) 1.6 mg/dL (0.6-1.0) Estimated GFR (Cockcroft-Gault) 27.1 31.0 BUN/Creatinine Ratio 16 (6-20) 14 (6-20) Glucose Level 171 mg/dL (70-99) 139 mg/dL (70-99) Lactic Acid Level 1.1 mmol/L (0.4-2.0) Calcium Level 8.5 mg/dL (8.5-10.1) 8.5 mg/dL (8.5-10.1) Magnesium Level 1.2 mg/dL (1.8-2.4) 2.2 mg/dL (1.8-2.4) Total Bilirubin 0.6 mg/dL (0.2-1.0) 0.5 mg/dL (0.2-1.0) Aspartate Amino Transf (AST/SGOT) 11 U/L (15-37) 14 U/L (15-37) Alanine Aminotransferase (ALT/SGPT) 11 U/L (14-59) 10 U/L (14-59) Alkaline Phosphatase 75 U/L (46-116) 75 U/L (46-116) Creatine Kinase 62 U/L (26-192) Troponin I Quantitative 0.080 ng/mL (0.000-0.055) 0.064 ng/mL (0.000-0.055) NM-Moa-T-Type Natriuretic Peptide 86196 pg/mL (0-449) Total Protein 6.1 g/dL (6.4-8.2) 6.0 g/dL (6.4-8.2) Albumin 2.9 g/dL (3.4-5.0) 2.8 g/dL (3.4-5.0) Albumin/Globulin Ratio 0.9 (1.0-1.7) 0.9 (1.0-1.7) Lipase 37 U/L (73-393) Urine Collection Type U cath Urine Color Yellow Urine Clarity Cloudy Urine pH 5.0 Urine Specific [place] 1.015 Urine Protein 100 mg/dL (NEG-TRACE) Urine Glucose (UA) Negative mg/dL (NEG) Urine Ketones (Stick) Negative mg/dL (NEG) Urine Blood Moderate (NEG) Urine Nitrite Positive (NEG) Urine Bilirubin Negative (NEG) Urine Urobilinogen Dipstick 0.2 mg/dL (0.2 mg/dL) Urine Leukocyte Esterase Large (NEG) Urine RBC Occ /HPF (0-2) Urine WBC >40 /HPF (0-4) Urine Squamous Epithelial Cells Few /LPF Urine Transitional Epithelial Cells Occ /LPF Urine Bacteria Many /HPF (0-FEW) Allergies: Coded Allergies: Sulfa (Sulfonamide Antibiotics) (Verified Allergy, Intermediate, HIVES, 04/10/17) morphine (Verified Adverse Reaction, Intermediate, Nausea, 04/10/17) Medications: Current Medications Medications (Trade) Dose Ordered Sig/[place] Route PRN Reason Start Time Stop Time Status Last Admin Dose Admin Sodium Chloride 1,000 ml @ 200 mls/hr Q5H IV 02/06/19 12:10 02/06/19 15:40 DC 02/06/19 13:19 Magnesium Sulfate 100 ml @ 25 mls/hr 1X ONCE IV 02/06/19 16:00 02/06/19 19:59 DC 02/06/19 16:07 Ceftriaxone Sodium (Rocephin) 1 gm DAILY16 ONCE IVP 02/06/19 16:00 02/06/19 16:01 DC 02/06/19 16:05 Carvedilol (Coreg) 25 mg BIDWMEALS PO 02/06/19 18:00 02/07/19 09:05 Aspirin (Ecotrin) 81 mg DAILYWBKFT PO 02/07/19 08:00 02/07/19 09:05 Calcium Carbonate/ Glycine (Oscal) 500 mg BID PO 02/06/19 21:00 02/07/19 09:05 Diphenhydramine HCl (Benadryl) 25 mg QHS PO 02/06/19 21:00 02/06/19 22:18 Duloxetine HCl (Cymbalta) 40 mg DAILY PO 02/07/19 09:00 02/07/19 09:06 Folic Acid (Folic Acid) 0.5 mg DAILY PO 02/07/19 09:00 02/07/19 09:05 Furosemide (Lasix) 20 mg DAILY PO 02/07/19 09:00 02/07/19 09:06 Gabapentin (Neurontin) 300 mg BID PO 02/06/19 21:00 02/07/19 09:05 Acetaminophen/ Hydrocodone Bitart (Lortab 10/325) 1 tab PRN Q8HRS PRN PO PAIN 02/06/19 18:00 02/06/19 22:21 Potassium Chloride (Klor-Con) 20 meq DAILYWBKFT PO 02/07/19 08:00 02/07/19 09:05 Lisinopril (Prinivil) 40 mg DAILY PO 02/07/19 09:00 02/07/19 09:06 Multivitamins (Thera M Plus) 1 tab DAILY PO 02/07/19 09:00 02/07/19 09:04 Atorvastatin Calcium (Lipitor) 20 mg QHS PO 02/06/19 21:00 02/06/19 22:19 Potassium Chloride (Klor-Con) 20 meq 1X ONCE PO 02/06/19 22:00 02/06/19 22:01 DC 02/06/19 22:18 Levothyroxine Sodium (Synthroid) 150 mcg DAILY06 PO 02/07/19 06:00 02/07/19 05:56 Albuterol/ Ipratropium (Duoneb) 3 ml 1X ONCE NEB 02/07/19 08:00 02/07/19 08:13 DC 02/07/19 08:20 Imaging: Imaging: Head CT Impression: 1. No acute intracranial process identified 2. Mild Age-related atrophy, and evidence of chronic small vessel disease as described PE: GEN: NAD HEENT: Atraumatic, PERRL LUNGS: diminished HEART:distant ABD: NABS, S/ND/NT EXTREMITY: trace edema BLE SKIN: No rashes, no jaundice NEURO/PSYCH: A & O 3, forgetful A/P: A/P: ?syncope, shortness of breath CHF, elevated troponin, CKD, UTI Chronic diarrhea CRC screen - UTD H/o ischemic colitis Diverticulosis, hemorrhoids H/o breast cancer -- Currently without diarrhea - observe. Continue per cardiology, treat UTI. JAVIER SIMMONS Feb 07, 2019 10:02
[2019-02-07 11:09] VITALS: BP 142/79
[2019-02-07] MEDS: IPRATRPIUM/ALBUTEROL 0.5/2.5MG 3 ML NEBU. NEB SCH ×3 (11:18→19:12)
--- NOTE | 2019-02-07 11:32 | PDOC2 ---
CARDIAC CONSULT DATE OF CONSULT Date of Consult DATE: 02/07/19 TIME: 10:57 REASON FOR CONSULT Reason for Consult: Syncope REFERRING PHYSICIAN Referring Physician: Kartik SOURCE Source: Chart review, Patient HISTORY OF PRESENT ILLNESS HISTORY OF PRESENT ILLNESS This is a pleasant 78 yo female admitted for complains of diarrhea and passing out. Reports that she has been having watery stools about 8 times per day which stopped yesterday morning. Despite this she has been taking her lasix but has been compensating by increasing her PO fluid intake. She did passed out but unclear when this week. No traumatic injury just bruising on her left side and she is not in any pain. Reports no presyncopal palpitations, or chest pain but she does have SOA all the time and just recently just got started on an expensive inhaler which is the only medication thats new for her. She has been complaint with her medications. No fever chills, coughing, and no vomiting. Denies eating out or any recent food poisoning. 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 No i ncreased leg swelling nor orthopnea and PND and has been complaint with her CPAP. PAST MEDICAL HISTORY Past Medical History Cardiovascular: CHF (chronic systolic), HTN, Hyperlipidemia, Other (cardiomyopathy; presumed ischemic) Pulmonary: Asthma? ANNIKA GI: Diverticulosis, Hemorrhoids Heme/Onc: Anemia NOS, Cancer (breast) Musculoskeletal: low back pain (chronic) Rheumatologic: No pertinent hx Infectious disease: No pertinent hx ENT: No pertinent hx Renal/: Chronic renal insuff Endocrine: Diabetes, Hypothyroidism Dermatology: No pertinent hx PAST SURGICAL HISTORY Past Surgical History Breast Biopsy, Cataract Removal, Mastectomy (right), Hysterectomy, Other (right rotator cuff; repair of retinal tears; carpal tunnel release) FAMILY HISTORY Family History noncontributory to CV SOCIAL HISTORY Smoke: No ALCOHOL: none Drugs: None Lives: with Family CURRENT MEDICATIONS CURRENT MEDICATIONS Current Medications Medications (Trade) Dose Ordered Sig/Hesham Route PRN Reason Start Time Stop Time Status Last Admin Dose Admin Sodium Chloride 1,000 ml @ 200 mls/hr Q5H IV 02/06/19 12:10 02/06/19 15:40 DC 02/06/19 13:19 Magnesium Sulfate 100 ml @ 25 mls/hr 1X ONCE IV 02/06/19 16:00 02/06/19 19:59 DC 02/06/19 16:07 Ceftriaxone Sodium (Rocephin) 1 gm DAILY16 ONCE IVP 02/06/19 16:00 02/06/19 16:01 DC 02/06/19 16:05 Carvedilol (Coreg) 25 mg BIDWMEALS PO 02/06/19 18:00 02/07/19 09:05 Aspirin (Ecotrin) 81 mg DAILYWBKFT PO 02/07/19 08:00 02/07/19 09:05 Calcium Carbonate/ Glycine (Oscal) 500 mg BID PO 02/06/19 21:00 02/07/19 09:05 Diphenhydramine HCl (Benadryl) 25 mg QHS PO 02/06/19 21:00 02/06/19 22:18 Duloxetine HCl (Cymbalta) 40 mg DAILY PO 02/07/19 09:00 02/07/19 09:06 Folic Acid (Folic Acid) 0.5 mg DAILY PO 02/07/19 09:00 02/07/19 09:05 Furosemide (Lasix) 20 mg DAILY PO 02/07/19 09:00 02/07/19 09:06 Gabapentin (Neurontin) 300 mg BID PO 02/06/19 21:00 02/07/19 09:05 Acetaminophen/ Hydrocodone Bitart (Lortab 10/325) 1 tab PRN Q8HRS PRN PO PAIN 02/06/19 18:00 02/06/19 22:21 Potassium Chloride (Klor-Con) 20 meq DAILYWBKFT PO 02/07/19 08:00 02/07/19 09:05 Lisinopril (Prinivil) 40 mg DAILY PO 02/07/19 09:00 02/07/19 09:06 Multivitamins (Thera M Plus) 1 tab DAILY PO 02/07/19 09:00 02/07/19 09:04 Atorvastatin Calcium (Lipitor) 20 mg QHS PO 02/06/19 21:00 02/06/19 22:19 Potassium Chloride (Klor-Con) 20 meq 1X ONCE PO 02/06/19 22:00 02/06/19 22:01 DC 02/06/19 22:18 Levothyroxine Sodium (Synthroid) 150 mcg DAILY06 PO 02/07/19 06:00 02/07/19 05:56 Albuterol/ Ipratropium (Duoneb) 3 ml 1X ONCE NEB 02/07/19 08:00 02/07/19 08:13 DC 02/07/19 08:20 ALLERGIES ALLERGIES: Coded Allergies: Sulfa (Sulfonamide Antibiotics) (Verified Allergy, Intermediate, HIVES, 04/10/17) morphine (Verified Adverse Reaction, Intermediate, Nausea, 04/10/17) ROS Review of System 14 point ROS evaluated with pertinent positives noted per HPI PHYSICAL EXAM General: Alert, Oriented X3, Cooperative, No acute distress HEENT: Atraumatic, Mucous membr. moist/pink Lungs: Clear to auscultation, Normal air movement Heart: Regular rate (SR), Normal S1, Normal S2, Other (3/6 systolic apical murmur) Abdomen: Soft, No tenderness Extremities: No cyanosis, No edema Skin: No breakdown, No significant lesion Neuro: Normal speech, Sensation intact Psych/Mental Status: Mental status NL, Mood NL MUSCULOSKELETAL: Osteoarthritic changes both hands VITALS/I&O VITALS/I&O: Vital Signs Date Time Temp Pulse Resp B/P (MAP) Pulse Ox O2 Delivery O2 Flow Rate FiO2 02/07/19 09:06 85 02/07/19 08:20 99 Room Air 02/07/19 07:25 97.6 20 182/91 (121) 97.6 I & O 02/06/19 02/06/19 02/07/19 15:00 23:00 07:00 Intake Total 600 ml 400 ml Output Total 600 ml Balance 600 ml -200 ml LABS Lab: Laboratory Tests Test 02/06/19 12:30 02/06/19 13:40 02/06/19 18:30 02/07/19 07:15 White Blood Count 9.7 x10^3/uL (4.0-11.0) 8.1 x10^3/uL (4.0-11.0) Red Blood Count 4.29 x10^6/uL (3.50-5.40) 4.30 x10^6/uL (3.50-5.40) Hemoglobin 13.6 g/dL (12.0-15.5) 13.8 g/dL (12.0-15.5) Hematocrit 39.9 % (36.0-47.0) 41.0 % (36.0-47.0) Mean Corpuscular Volume 93 fL (79-100) 95 fL (79-100) Mean Corpuscular Hemoglobin 32 pg (25-35) 32 pg (25-35) Mean Corpuscular Hemoglobin Concent 34 g/dL (31-37) 34 g/dL (31-37) Red Cell Distribution Width 14.4 % (11.5-14.5) 14.7 % (11.5-14.5) H Platelet Count 167 x10^3/uL (140-400) 171 x10^3/uL (140-400) Neutrophils (%) (Auto) 77 % (31-73) H 72 % (31-73) Lymphocytes (%) (Auto) 13 % (24-48) L 15 % (24-48) L Monocytes (%) (Auto) 8 % (0-9) 7 % (0-9) Eosinophils (%) (Auto) 2 % (0-3) 5 % (0-3) H Basophils (%) (Auto) 1 % (0-3) 0 % (0-3) Neutrophils # (Auto) 7.4 x10^3/uL (1.8-7.7) 5.9 x10^3/uL (1.8-7.7) Lymphocytes # (Auto) 1.2 x10^3/uL (1.0-4.8) 1.2 x10^3/uL (1.0-4.8) Monocytes # (Auto) 0.8 x10^3/uL (0.0-1.1) 0.6 x10^3/uL (0.0-1.1) Eosinophils # (Auto) 0.2 x10^3/uL (0.0-0.7) 0.4 x10^3/uL (0.0-0.7) Basophils # (Auto) 0.1 x10^3/uL (0.0-0.2) 0.0 x10^3/uL (0.0-0.2) Prothrombin Time 14.9 SEC (11.7-14.0) H Prothrombin Time INR 1.2 (0.8-1.1) H Sodium Level 142 mmol/L (136-145) 143 mmol/L (136-145) Potassium Level 3.4 mmol/L (3.5-5.1) L 3.6 mmol/L (3.5-5.1) Chloride Level 104 mmol/L (98-107) 106 mmol/L (98-107) Carbon Dioxide Level 25 mmol/L (21-32) 24 mmol/L (21-32) Anion Gap 13 (6-14) 13 (6-14) Blood Urea Nitrogen 28 mg/dL (7-20) H 23 mg/dL (7-20) H Creatinine 1.8 mg/dL (0.6-1.0) H 1.6 mg/dL (0.6-1.0) H Estimated GFR (Cockcroft-Gault) 27.1 31.0 BUN/Creatinine Ratio 16 (6-20) 14 (6-20) Glucose Level 171 mg/dL (70-99) H 139 mg/dL (70-99) H Lactic Acid Level 1.1 mmol/L (0.4-2.0) Calcium Level 8.5 mg/dL (8.5-10.1) 8.5 mg/dL (8.5-10.1) Magnesium Level 1.2 mg/dL (1.8-2.4) L 2.2 mg/dL (1.8-2.4) Total Bilirubin 0.6 mg/dL (0.2-1.0) 0.5 mg/dL (0.2-1.0) Aspartate Amino Transferase (AST) 11 U/L (15-37) L 14 U/L (15-37) L Alanine Aminotransferase (ALT) 11 U/L (14-59) L 10 U/L (14-59) L Alkaline Phosphatase 75 U/L (46-116) 75 U/L (46-116) Creatine Kinase 62 U/L (26-192) Troponin I Quantitative 0.080 ng/mL (0.000-0.055) 0.064 ng/mL (0.000-0.055) OP-Gvt-P-Type Natriuretic Peptide 83834 pg/mL (0-449) H Total Protein 6.1 g/dL (6.4-8.2) L 6.0 g/dL (6.4-8.2) L Albumin 2.9 g/dL (3.4-5.0) L 2.8 g/dL (3.4-5.0) L Albumin/Globulin Ratio 0.9 (1.0-1.7) L 0.9 (1.0-1.7) L Lipase 37 U/L (73-393) L Urine Collection Type U cath Urine Color Yellow Urine Clarity Cloudy Urine pH 5.0 Urine Specific [place] 1.015 Urine Protein 100 mg/dL (NEG-TRACE) Urine Glucose (UA) Negative mg/dL (NEG) Urine Ketones (Stick) Negative mg/dL (NEG) Urine Blood Moderate (NEG) Urine Nitrite Positive (NEG) Urine Bilirubin Negative (NEG) Urine Urobilinogen Dipstick 0.2 mg/dL (0.2 mg/dL) Urine Leukocyte Esterase Large (NEG) Urine RBC Occ /HPF (0-2) Urine WBC >40 /HPF (0-4) Urine Squamous Epithelial Cells Few /LPF Urine Transitional Epithelial Cells Occ /LPF Urine Bacteria Many /HPF (0-FEW) Laboratory Tests 02/06/19 12:30 02/07/19 07:15 Laboratory Tests 02/06/19 12:30 02/07/19 07:15 ECHOCARDIOGRAM ECHOCARDIOGRAM <Conclusion> The ejection fraction is moderately impaired. The Ejection Fraction is 40-45%. There is global hypokinesis of the left ventricle. Doppler and Color-flow revealed moderate mitral regurgitation. DATE: 07/09/18 1500 STRESS TEST STRESS TEST Conclusion 1. No evidence of stress induced EKG changes. 2. Small to moderate sized fixed apical defect suggestive of prior infarct. 3. Moderate LV dysfunction. EF 41% 4. Moderate to high risk study for future cardiac events. DATE: 11/29/16 1253 ASSESSMENT/PLAN ASSESSMENT/PLAN 1. Diarrhea: last noted Monday. GI following 2. Syncope with nontraumatic fall: suspect from volume depletion. No arrhythmias so far 3. LUIS on CKD3: Cr stable. 4. Hypokalemia/hypomagnesemia: replaced 5. NICM: EF last noted at 40% 6. ANNIKA: CPAP compliant Recommendations 1. Limited TTE. Will arrange for event monitor 2. Orthostatic readings. 3. Continue secondary prevention measures. may hold lasix if diarrhea continues. Received IVF in ED. LESLIE BARRIOS APRN Feb 07, 2019 11:32
--- NOTE | 2019-02-07 12:33 | PDOC ---
[employer] PROGRESS NOTE Chief Complaint Chief Complaint syncope with fall acute on chronic systolic CHF diarrhea UTI hypokalemia hypomag morbid obesity, BMI 35, with moderate malnutrition CKD3 NICM: EF last noted at 40% ANNIKA SOB History of Present Illness History of Present Illness 02/07/2019 Pt was seen and examined. Was resting comfortably on exam. Complained of syncopal symptoms and recurrent diarrhea on exam. Also complains of difficulty breathing. Vitals/I&O Vitals/I&O: Vital Signs Date Time Temp Pulse Resp B/P (MAP) Pulse Ox O2 Delivery O2 Flow Rate FiO2 02/07/19 11:18 Room Air 02/07/19 11:09 98.1 67 20 142/79 (100) 94 98.1 I & O 02/06/19 02/06/19 02/07/19 15:00 23:00 07:00 Intake Total 600 ml 400 ml Output Total 600 ml Balance 600 ml -200 ml Physical Exam General: Alert, Oriented X3, Cooperative, No acute distress Heart: Regular rate (SR), Normal S1, Normal S2, Other (3/6 systolic apical murmur) Lungs: Clear, Other Abdomen: Normal bowel sounds, Soft, No tenderness Extremities: No cyanosis, No edema Skin: No breakdown, No significant lesion Labs Labs: Laboratory Tests Test 02/06/19 12:30 02/06/19 13:40 02/06/19 18:30 02/07/19 07:15 White Blood Count 9.7 x10^3/uL (4.0-11.0) 8.1 x10^3/uL (4.0-11.0) Red Blood Count 4.29 x10^6/uL (3.50-5.40) 4.30 x10^6/uL (3.50-5.40) Hemoglobin 13.6 g/dL (12.0-15.5) 13.8 g/dL (12.0-15.5) Hematocrit 39.9 % (36.0-47.0) 41.0 % (36.0-47.0) Mean Corpuscular Volume 93 fL (79-100) 95 fL (79-100) Mean Corpuscular Hemoglobin 32 pg (25-35) 32 pg (25-35) Mean Corpuscular Hemoglobin Concent 34 g/dL (31-37) 34 g/dL (31-37) Red Cell Distribution Width 14.4 % (11.5-14.5) 14.7 % (11.5-14.5) Platelet Count 167 x10^3/uL (140-400) 171 x10^3/uL (140-400) Neutrophils (%) (Auto) 77 % (31-73) 72 % (31-73) Lymphocytes (%) (Auto) 13 % (24-48) 15 % (24-48) Monocytes (%) (Auto) 8 % (0-9) 7 % (0-9) Eosinophils (%) (Auto) 2 % (0-3) 5 % (0-3) Basophils (%) (Auto) 1 % (0-3) 0 % (0-3) Neutrophils # (Auto) 7.4 x10^3/uL (1.8-7.7) 5.9 x10^3/uL (1.8-7.7) Lymphocytes # (Auto) 1.2 x10^3/uL (1.0-4.8) 1.2 x10^3/uL (1.0-4.8) Monocytes # (Auto) 0.8 x10^3/uL (0.0-1.1) 0.6 x10^3/uL (0.0-1.1) Eosinophils # (Auto) 0.2 x10^3/uL (0.0-0.7) 0.4 x10^3/uL (0.0-0.7) Basophils # (Auto) 0.1 x10^3/uL (0.0-0.2) 0.0 x10^3/uL (0.0-0.2) Prothrombin Time 14.9 SEC (11.7-14.0) Prothromb Time International Ratio 1.2 (0.8-1.1) Sodium Level 142 mmol/L (136-145) 143 mmol/L (136-145) Potassium Level 3.4 mmol/L (3.5-5.1) 3.6 mmol/L (3.5-5.1) Chloride Level 104 mmol/L (98-107) 106 mmol/L (98-107) Carbon Dioxide Level 25 mmol/L (21-32) 24 mmol/L (21-32) Anion Gap 13 (6-14) 13 (6-14) Blood Urea Nitrogen 28 mg/dL (7-20) 23 mg/dL (7-20) Creatinine 1.8 mg/dL (0.6-1.0) 1.6 mg/dL (0.6-1.0) Estimated GFR (Cockcroft-Gault) 27.1 31.0 BUN/Creatinine Ratio 16 (6-20) 14 (6-20) Glucose Level 171 mg/dL (70-99) 139 mg/dL (70-99) Lactic Acid Level 1.1 mmol/L (0.4-2.0) Calcium Level 8.5 mg/dL (8.5-10.1) 8.5 mg/dL (8.5-10.1) Magnesium Level 1.2 mg/dL (1.8-2.4) 2.2 mg/dL (1.8-2.4) Total Bilirubin 0.6 mg/dL (0.2-1.0) 0.5 mg/dL (0.2-1.0) Aspartate Amino Transf (AST/SGOT) 11 U/L (15-37) 14 U/L (15-37) Alanine Aminotransferase (ALT/SGPT) 11 U/L (14-59) 10 U/L (14-59) Alkaline Phosphatase 75 U/L (46-116) 75 U/L (46-116) Creatine Kinase 62 U/L (26-192) Troponin I Quantitative 0.080 ng/mL (0.000-0.055) 0.064 ng/mL (0.000-0.055) GI-Mgp-W-Type Natriuretic Peptide 70079 pg/mL (0-449) Total Protein 6.1 g/dL (6.4-8.2) 6.0 g/dL (6.4-8.2) Albumin 2.9 g/dL (3.4-5.0) 2.8 g/dL (3.4-5.0) Albumin/Globulin Ratio 0.9 (1.0-1.7) 0.9 (1.0-1.7) Lipase 37 U/L (73-393) Urine Collection Type U cath Urine Color Yellow Urine Clarity Cloudy Urine pH 5.[address] [place] 1.015 Urine Protein 100 mg/dL (NEG-TRACE) Urine Glucose (UA) Negative mg/dL (NEG) Urine Ketones (Stick) Negative mg/dL (NEG) Urine Blood Moderate (NEG) Urine Nitrite Positive (NEG) Urine Bilirubin Negative (NEG) Urine Urobilinogen Dipstick 0.2 mg/dL (0.2 mg/dL) Urine Leukocyte Esterase Large (NEG) Urine RBC Occ /HPF (0-2) Urine WBC >40 /HPF (0-4) Urine Squamous Epithelial Cells Few /LPF Urine Transitional Epithelial Cells Occ /LPF Urine Bacteria Many /HPF (0-FEW) Review of Systems Review of Systems: Denies CP Admits SOB Denies N/V/D Assessment and Plan Assessmemt and Plan Problems Medical Problems: (1) Diarrhea Status: Acute (2) Elevated troponin I level Status: Acute (3) Fall Status: Acute (4) Generalized weakness Status: Acute (5) Hypomagnesemia Status: Acute (6) Urinary tract infection Status: Acute syncope with fall acute on chronic systolic CHF diarrhea UTI hypokalemia hypomag morbid obesity, BMI 35, with moderate malnutrition CKD3 NICM: EF last noted at 40% ANNIKA SOB Plan: 1) Consulted GI for recurrent diarrhea 2) Consulted pulmonology for SOB complaints, also prescribed patient DuoNeb q 4 h prn 3) Consulted Cardiology for evaluation of syncope 4) Restarted Ceftriaxone for UTI 5) Daily Labs 6) PT/OT 7) DVT prophylaxis Comment Review of Relevant I have reviewed the following items chris (where applicable) has been applied. Medications: Current Medications Medications (Trade) Dose Ordered Sig/Hesham Route PRN Reason Start Time Stop Time Status Last Admin Dose Admin Magnesium Sulfate 100 ml @ 25 mls/hr 1X ONCE IV 02/06/19 16:00 02/06/19 19:59 DC 02/06/19 16:07 Ceftriaxone Sodium (Rocephin) 1 gm DAILY16 ONCE IVP 02/06/19 16:00 02/06/19 16:01 DC 02/06/19 16:05 Carvedilol (Coreg) 25 mg BIDWMEALS PO 02/06/19 18:00 02/07/19 09:05 Aspirin (Ecotrin) 81 mg DAILYWBKFT PO 02/07/19 08:00 02/07/19 09:05 Calcium Carbonate/ Glycine (Oscal) 500 mg BID PO 02/06/19 21:00 02/07/19 09:05 Diphenhydramine HCl (Benadryl) 25 mg QHS PO 02/06/19 21:00 02/06/19 22:18 Duloxetine HCl (Cymbalta) 40 mg DAILY PO 02/07/19 09:00 02/07/19 09:06 Folic Acid (Folic Acid) 0.5 mg DAILY PO 02/07/19 09:00 02/07/19 09:05 Furosemide (Lasix) 20 mg DAILY PO 02/07/19 09:00 02/07/19 09:06 Gabapentin (Neurontin) 300 mg BID PO 02/06/19 21:00 02/07/19 09:05 Acetaminophen/ Hydrocodone Bitart (Lortab 10/325) 1 tab PRN Q8HRS PRN PO PAIN 02/06/19 18:00 02/06/19 22:21 Potassium Chloride (Klor-Con) 20 meq DAILYWBKFT PO 02/07/19 08:00 02/07/19 09:05 Lisinopril (Prinivil) 40 mg DAILY PO 02/07/19 09:00 02/07/19 09:06 Multivitamins (Thera M Plus) 1 tab DAILY PO 02/07/19 09:00 02/07/19 09:04 Atorvastatin Calcium (Lipitor) 20 mg QHS PO 02/06/19 21:00 02/06/19 22:19 Potassium Chloride (Klor-Con) 20 meq 1X ONCE PO 02/06/19 22:00 02/06/19 22:01 DC 02/06/19 22:18 Levothyroxine Sodium (Synthroid) 150 mcg DAILY06 PO 02/07/19 06:00 02/07/19 05:56 Albuterol/ Ipratropium (Duoneb) 3 ml 1X ONCE NEB 02/07/19 08:00 02/07/19 08:13 DC 02/07/19 08:20 Albuterol/ Ipratropium (Duoneb) 3 ml RTQID NEB 02/07/19 12:00 02/07/19 11:18 DARIANA LINARES III DO Feb 07, 2019 12:33
--- NOTE | 2019-02-07 13:36 | CARD ---
MR#: [id number] Date of Study: 02/07/2019 Ordering Physician: LESLIE BARRIOS, Referring Physician: Prabhakar ANDERSON: Pearl Gallagher APPROVED REPORT EXAM: Two-dimensional and M-mode echocardiogram with Doppler and color Doppler. Other Information Quality : AverageHR: 79bpm INDICATION Cardiomyopathy 2D DIMENSIONS IVSd1.1 (0.7-1.1cm)LVDd5.9 (3.9-5.9cm) PWd0.8 (0.7-1.1cm)LVDs4.8 (2.5-4.0cm) FS (%) 18.5 %SV66.4 ml LVEF(%)37.6 (>50%) LEFT VENTRICLE The Left Ventricle is mildly dilated. There is normal left ventricular wall thickness. The systolic f unction is severely impaired. EF 30% There is global hypokinesis of the left ventricle. RIGHT VENTRICLE The right ventricle is normal size. There is normal right ventricular wall thickness. The right ventr icular systolic function is normal. ATRIA The left atrium is moderately dilated. The right atrium is mildly dilated. GREAT VESSELS The aortic root is normal in size. PERICARDIAL EFFUSION There is no evidence of significant pericardial effusion. <Conclusion> The systolic function is severely impaired. EF 30% There is global hypokinesis of the left ventricle. Limited TTE only Signed by : Cal Zarate, Electronically Approved : 02/07/2019 13:36:10
--- NOTE | 2019-02-07 14:04 | NUR ---
SS following for discharge planning. SS reviewed pt chart. Pt is from home with spouse and is currently on room air. Pt's spouse is currently at home with [facility], ; fax [phone]. PT/OT ordered. OT recommended home independent at discharge. SS will continue to follow for discharge planning.
[2019-02-07 15:00] VITALS: BP 147/77
--- NOTE | 2019-02-07 15:20 | PDOC ---
PULMONARY PROGRESS NOTES Vitals Vital Signs Date Time Temp Pulse Resp B/P (MAP) Pulse Ox O2 Delivery O2 Flow Rate FiO2 02/07/19 11:18 Room Air 02/07/19 11:09 98.1 67 20 142/79 (100) 94 98.1 Lungs: Clear, Other Cardiovascular: S1 Labs Laboratory Tests Test 02/06/19 12:30 02/06/19 13:40 02/06/19 18:30 02/07/19 07:15 White Blood Count 9.7 x10^3/uL (4.0-11.0) 8.1 x10^3/uL (4.0-11.0) Red Blood Count 4.29 x10^6/uL (3.50-5.40) 4.30 x10^6/uL (3.50-5.40) Hemoglobin 13.6 g/dL (12.0-15.5) 13.8 g/dL (12.0-15.5) Hematocrit 39.9 % (36.0-47.0) 41.0 % (36.0-47.0) Mean Corpuscular Volume 93 fL (79-100) 95 fL (79-100) Mean Corpuscular Hemoglobin 32 pg (25-35) 32 pg (25-35) Mean Corpuscular Hemoglobin Concent 34 g/dL (31-37) 34 g/dL (31-37) Red Cell Distribution Width 14.4 % (11.5-14.5) 14.7 % (11.5-14.5) Platelet Count 167 x10^3/uL (140-400) 171 x10^3/uL (140-400) Neutrophils (%) (Auto) 77 % (31-73) 72 % (31-73) Lymphocytes (%) (Auto) 13 % (24-48) 15 % (24-48) Monocytes (%) (Auto) 8 % (0-9) 7 % (0-9) Eosinophils (%) (Auto) 2 % (0-3) 5 % (0-3) Basophils (%) (Auto) 1 % (0-3) 0 % (0-3) Neutrophils # (Auto) 7.4 x10^3/uL (1.8-7.7) 5.9 x10^3/uL (1.8-7.7) Lymphocytes # (Auto) 1.2 x10^3/uL (1.0-4.8) 1.2 x10^3/uL (1.0-4.8) Monocytes # (Auto) 0.8 x10^3/uL (0.0-1.1) 0.6 x10^3/uL (0.0-1.1) Eosinophils # (Auto) 0.2 x10^3/uL (0.0-0.7) 0.4 x10^3/uL (0.0-0.7) Basophils # (Auto) 0.1 x10^3/uL (0.0-0.2) 0.0 x10^3/uL (0.0-0.2) Prothrombin Time 14.9 SEC (11.7-14.0) Prothromb Time International Ratio 1.2 (0.8-1.1) Sodium Level 142 mmol/L (136-145) 143 mmol/L (136-145) Potassium Level 3.4 mmol/L (3.5-5.1) 3.6 mmol/L (3.5-5.1) Chloride Level 104 mmol/L (98-107) 106 mmol/L (98-107) Carbon Dioxide Level 25 mmol/L (21-32) 24 mmol/L (21-32) Anion Gap 13 (6-14) 13 (6-14) Blood Urea Nitrogen 28 mg/dL (7-20) 23 mg/dL (7-20) Creatinine 1.8 mg/dL (0.6-1.0) 1.6 mg/dL (0.6-1.0) Estimated GFR (Cockcroft-Gault) 27.1 31.0 BUN/Creatinine Ratio 16 (6-20) 14 (6-20) Glucose Level 171 mg/dL (70-99) 139 mg/dL (70-99) Lactic Acid Level 1.1 mmol/L (0.4-2.0) Calcium Level 8.5 mg/dL (8.5-10.1) 8.5 mg/dL (8.5-10.1) Magnesium Level 1.2 mg/dL (1.8-2.4) 2.2 mg/dL (1.8-2.4) Total Bilirubin 0.6 mg/dL (0.2-1.0) 0.5 mg/dL (0.2-1.0) Aspartate Amino Transf (AST/SGOT) 11 U/L (15-37) 14 U/L (15-37) Alanine Aminotransferase (ALT/SGPT) 11 U/L (14-59) 10 U/L (14-59) Alkaline Phosphatase 75 U/L (46-116) 75 U/L (46-116) Creatine Kinase 62 U/L (26-192) Troponin I Quantitative 0.080 ng/mL (0.000-0.055) 0.064 ng/mL (0.000-0.055) EA-Isl-I-Type Natriuretic Peptide 03910 pg/mL (0-449) Total Protein 6.1 g/dL (6.4-8.2) 6.0 g/dL (6.4-8.2) Albumin 2.9 g/dL (3.4-5.0) 2.8 g/dL (3.4-5.0) Albumin/Globulin Ratio 0.9 (1.0-1.7) 0.9 (1.0-1.7) Lipase 37 U/L (73-393) Urine Collection Type U cath Urine Color Yellow Urine Clarity Cloudy Urine pH 5.0 Urine Specific [place] 1.015 Urine Protein 100 mg/dL (NEG-TRACE) Urine Glucose (UA) Negative mg/dL (NEG) Urine Ketones (Stick) Negative mg/dL (NEG) Urine Blood Moderate (NEG) Urine Nitrite Positive (NEG) Urine Bilirubin Negative (NEG) Urine Urobilinogen Dipstick 0.2 mg/dL (0.2 mg/dL) Urine Leukocyte Esterase Large (NEG) Urine RBC Occ /HPF (0-2) Urine WBC >40 /HPF (0-4) Urine Squamous Epithelial Cells Few /LPF Urine Transitional Epithelial Cells Occ /LPF Urine Bacteria Many /HPF (0-FEW) Laboratory Tests Test 02/06/19 18:30 02/07/19 07:15 Troponin I Quantitative 0.064 ng/mL (0.000-0.055) White Blood Count 8.1 x10^3/uL (4.0-11.0) Red Blood Count 4.30 x10^6/uL (3.50-5.40) Hemoglobin 13.8 g/dL (12.0-15.5) Hematocrit 41.0 % (36.0-47.0) Mean Corpuscular Volume 95 fL (79-100) Mean Corpuscular Hemoglobin 32 pg (25-35) Mean Corpuscular Hemoglobin Concent 34 g/dL (31-37) Red Cell Distribution Width 14.7 % (11.5-14.5) Platelet Count 171 x10^3/uL (140-400) Neutrophils (%) (Auto) 72 % (31-73) Lymphocytes (%) (Auto) 15 % (24-48) Monocytes (%) (Auto) 7 % (0-9) Eosinophils (%) (Auto) 5 % (0-3) Basophils (%) (Auto) 0 % (0-3) Neutrophils # (Auto) 5.9 x10^3/uL (1.8-7.7) Lymphocytes # (Auto) 1.2 x10^3/uL (1.0-4.8) Monocytes # (Auto) 0.6 x10^3/uL (0.0-1.1) Eosinophils # (Auto) 0.4 x10^3/uL (0.0-0.7) Basophils # (Auto) 0.0 x10^3/uL (0.0-0.2) Sodium Level 143 mmol/L (136-145) Potassium Level 3.6 mmol/L (3.5-5.1) Chloride Level 106 mmol/L (98-107) Carbon Dioxide Level 24 mmol/L (21-32) Anion Gap 13 (6-14) Blood Urea Nitrogen 23 mg/dL (7-20) Creatinine 1.6 mg/dL (0.6-1.0) Estimated GFR (Cockcroft-Gault) 31.0 BUN/Creatinine Ratio 14 (6-20) Glucose Level 139 mg/dL (70-99) Calcium Level 8.5 mg/dL (8.5-10.1) Magnesium Level 2.2 mg/dL (1.8-2.4) Total Bilirubin 0.5 mg/dL (0.2-1.0) Aspartate Amino Transf (AST/SGOT) 14 U/L (15-37) Alanine Aminotransferase (ALT/SGPT) 10 U/L (14-59) Alkaline Phosphatase 75 U/L (46-116) Total Protein 6.0 g/dL (6.4-8.2) Albumin 2.8 g/dL (3.4-5.0) Albumin/Globulin Ratio 0.9 (1.0-1.7) Medications Active Scripts Medications Dose Route/Sig Max Daily Dose Days Date Category Benadryl (Diphenhydramine Hcl) 25 Mg Capsule 1 Cap PO QHS 30 02/06/19 Reported Cymbalta (Duloxetine Hcl) 20 Mg Capsule.dr 40 Mg PO DAILY 02/06/19 Reported Benazepril Hcl 40 Mg Tablet 1 Tab PO DAILY 02/06/19 Reported Glucosamine Chondroitin Cap (Glucos Sul 2Kcl/MSM/Chond/C/Mn) 1 Each Capsule 1 Each PO BID 02/06/19 Reported Calcium Carbonate 500 Mg Tablet 1 Tab PO BID 30 02/06/19 Reported Crestor (Rosuvastatin Calcium) 5 Mg Tablet 5 Mg PO HS 02/06/19 Reported Carvedilol 25 Mg Tablet 25 Mg PO BIDWMEALS 02/06/19 Reported Exemestane 25 Mg Tablet 25 Mg PO DAILY 10/19/17 Reported Gabapentin (Gabapentin) 300 Mg Capsule 300 Mg PO BID 10/19/17 Reported Multivitamins (Multivitamin) 1 Each Tablet 1 Tab PO DAILY 10/19/17 Reported Lasix (Furosemide) 20 Mg Tablet 20 Mg PO DAILY 05/09/17 Reported [place] 10-325 Tablet (Acetaminophen/Hydrocodone Bitart) 1 Each Tablet 1 Tab PO PRN Q4-6HRS PRN 05/09/17 Reported Klor-Con M20 (Potassium Chloride) 20 Meq Tab.er.prt 20 Meq PO DAILYWBKFT 30 11/30/16 Rx Aspirin Ec (Aspirin) 81 Mg Tablet. 81 Mg PO DAILYWBKFT 30 11/30/16 Rx Folic Acid 1 Mg Tablet 400 Mcg PO DAILY 11/22/16 Reported Levothyroxine Sodium 150 Mcg Tablet 1 Tab PO DAILY-2TABS WED-SAT 11/22/16 Reported Impression . FULL NOTE DICTATED ANNIKA COPD FALL DIARRHEA SEE ORDERS THANKS GISELLE LAWSON MD Feb 07, 2019 15:20
[2019-02-07] MEDS: cefTRIAXone IV Push 1 GM VIAL. IVP SCH (16:44)
[2019-02-07 18:45] VITALS: BP 148/74
[2019-02-07] MEDS: diphenhydrAMINE HCL 25 MG CAPSULE PO SCH (19:40)
[2019-02-07] MEDS: HYDROcodone/APAP 10/325 1 TAB TABLET PO PRN (19:40)
[2019-02-07] MEDS: ATORVASTATIN CALCIUM 20 MG TABLET PO SCH (19:40)
--- NOTE | 2019-02-07 21:00 | CONS ---
DATE OF CONSULTATION: 02/07/2019 ATTENDING PHYSICIAN: Jenny Verdugo MD REASON FOR CONSULTATION: The patient seen in pulmonary consultation at the request of Dr. Celaya for COPD and ANNIKA. HISTORY OF PRESENT ILLNESS: The patient is an 78-year-old that was having some great difficulty with diarrhea, abdominal pain, some shortness of breath. She actually fell at home twice. She was admitted. She has a history of COPD and obstructive sleep apnea, was asked to see her in consultation. She states that she is doing well with the Spiriva at home. Unfortunately, her insurance company does not cover the medication. She is currently on DuoNeb. She is also greatly benefitting from CPAP at 16 cm of water pressure. She had a polysomnogram confirming the above. I was asked to see her in consultation. She denies productive cough. No fever or chills. PAST MEDICAL HISTORY: Otherwise remarkable for chronic heart failure, cardiomyopathy, ejection fraction of 40%, hypertension, hyperlipidemia, type 2 diabetes, hypothyroidism, chronic kidney disease. PAST SURGICAL HISTORY: Status post previous knee replacement, tonsillectomy, rotator cuff repair, partial hysterectomy and back surgery. SOCIAL HISTORY: She has never smoked. She has no excessive alcohol intake. She is a primary caregiver for her . MEDICATIONS: Current medication list was reviewed. REVIEW OF SYSTEMS: CONSTITUTIONAL: No fever or chills. HEENT: Eyes, no change in visual acuity. No nasal congestion or sore throat. PULMONARY: As indicated above. CARDIOVASCULAR: No chest pain or pressure. GASTROINTESTINAL: No nausea or vomiting. Some diarrhea as indicated above. GENITOURINARY: No dysuria or frequency. MUSCULOSKELETAL: No localized muscle aches or joint pain. SKIN: No new skin rashes. NEUROLOGIC: No headaches, diplopia or blurred vision. ALLERGIES: SULFA AND MORPHINE. PHYSICAL EXAMINATION: GENERAL: The patient was in no respiratory distress. VITAL SIGNS: Stable. O2 saturation was greater than 92%. HEENT: Eyes: The sclerae were nonicteric. NECK: Jugular venous distention was not elevated. No lymphadenopathy. CHEST: Full expansion. LUNGS: Adequate airway flow with no wheezes. CARDIOVASCULAR: Regular rate and rhythm with S1, S2, no S3. ABDOMEN: Obese. EXTREMITIES: No clubbing or cyanosis. Minimal edema. NEUROLOGICAL: The patient was awake, alert, following commands. A detailed neuro exam was not performed. LABORATORIES: Reviewed. White count was normal; hemoglobin and hematocrit were normal. BUN and creatinine were elevated. Troponin was elevated. BNP was elevated. Albumin was low. UA showed a large amount of leukocyte esterase, greater than 40 wbc's. IMPRESSION: 1. Obstructive sleep apnea. 2. Chronic obstructive pulmonary disease. 3. Diarrhea. 4. Cardiomyopathy. 5. Pszrg-eh-wuwjadw heart failure. 6. Hypothyroidism. 7. Hyperlipidemia. 8. Other comorbidities as listed above. PLAN: 1. Continue nebulized treatments. 2. We will initiate CPAP at 16 cm of water pressure. 3. Antibiotics for UTI. 4. PT, OT. I do appreciate the privilege in sharing in the patient's care. GISELLE LAWSON MD DR: CHRIS/megha JOB#: [id number] / [id number]
[2019-02-07 22:37] VITALS: BP 132/76
[2019-02-07] MEDS: LACTOBACILLUS RHAMNOSUS GG 1 CAPSULE. PO SCH (23:32)
[2019-02-08] VITALS (17 sets, daily range): BP systolic 115–198; BP diastolic 71–109
[2019-02-08 05:22] LABS: BASO % 0 % (0-3); EOS # 0.5 x10^3/uL (0.0-0.7); EOS % 7 % (0-3); HEMATOCRIT 38.6 % (36.0-47.0); HEMOGLOBIN 12.9 g/dL (12.0-15.5); LYMPH # 1.9 x10^3/uL (1.0-4.8); LYMPH % 25 % (24-48); MEAN CORPUSCULAR HEMOGLOBIN 32 pg (25-35); MEAN CORPUSCULAR HGB CONC 33 g/dL (31-37); MEAN CORPUSCULAR VOLUME 96 fL (79-100); MONO # 0.7 x10^3/uL (0.0-1.1); MONO % 9 % (0-9); NEUT # 4.5 x10^3/uL (1.8-7.7); NEUT % 59 % (31-73); PLATELET COUNT 164 x10^3/uL (140-400); RED BLOOD COUNT 4.01 x10^6/uL (3.50-5.40); RED CELL DISTRIBUTION WIDTH 14.2 % (11.5-14.5); WHITE BLOOD COUNT 7.6 x10^3/uL (4.0-11.0)
[2019-02-08 05:40] LABS: ALBUMIN 2.8 g/dL (3.4-5.0); ALBUMIN/GLOBULIN RATIO 0.9 (1.0-1.7); CALCIUM 8.5 mg/dL (8.5-10.1); CREATININE 1.9 mg/dL (0.6-1.0); GFR 25.4; POTASSIUM 3.7 mmol/L (3.5-5.1); TOTAL BILIRUBIN 0.3 mg/dL (0.2-1.0); TOTAL PROTEIN 5.9 g/dL (6.4-8.2)
[2019-02-08] MEDS: LEVOTHYROXINE 150 MCG TABLET PO SCH (06:12)
[2019-02-08] MEDS: MULTIVITAMIN with MINERAL TABLET. PO SCH (07:58)
[2019-02-08] MEDS: FOLIC ACID 1 MG TABLET. PO SCH (07:59)
[2019-02-08] MEDS: DULoxetine HCL 20 MG CAPSULE.DR PO SCH (07:59)
[2019-02-08] MEDS: FUROSEMIDE 20 MG TABLET PO SCH (08:00)
[2019-02-08] MEDS: IPRATRPIUM/ALBUTEROL 0.5/2.5MG 3 ML NEBU. NEB SCH ×4 (08:00→19:48)
[2019-02-08] MEDS: LISINOPRIL 20 MG TABLET PO SCH (08:00)
[2019-02-08] MEDS: LACTOBACILLUS RHAMNOSUS GG 1 CAPSULE. PO SCH ×2 (08:01→20:50)
[2019-02-08] MEDS: GABAPENTIN 300 MG CAPSULE. PO SCH ×2 (08:01→20:50)
[2019-02-08] MEDS: CALCIUM CARBONATE 500 MG TABLET PO SCH ×2 (08:01→20:50)
--- NOTE | 2019-02-08 08:21 | PDOC ---
PULMONARY PROGRESS NOTES Subjective NOT MORE SOA WORE CPAP LAST JUAN Vitals Vital Signs Date Time Temp Pulse Resp B/P (MAP) Pulse Ox O2 Delivery O2 Flow Rate FiO2 02/08/19 08:00 71 193/109 02/08/19 07:01 97.9 18 96 BiPAP/CPAP 97.9 ROS: No Nausea, No Chest Pain, No Abdominal Pain, No Increase Cough General: Alert Lungs: Clear, Other Cardiovascular: S1 Abdomen: Soft Neuro Exam: Alert Extremities: No Edema Skin: Warm Labs Laboratory Tests Test 02/06/19 12:30 02/06/19 13:40 02/06/19 18:30 02/07/19 07:15 White Blood Count 9.7 x10^3/uL (4.0-11.0) 8.1 x10^3/uL (4.0-11.0) Red Blood Count 4.29 x10^6/uL (3.50-5.40) 4.30 x10^6/uL (3.50-5.40) Hemoglobin 13.6 g/dL (12.0-15.5) 13.8 g/dL (12.0-15.5) Hematocrit 39.9 % (36.0-47.0) 41.0 % (36.0-47.0) Mean Corpuscular Volume 93 fL (79-100) 95 fL (79-100) Mean Corpuscular Hemoglobin 32 pg (25-35) 32 pg (25-35) Mean Corpuscular Hemoglobin Concent 34 g/dL (31-37) 34 g/dL (31-37) Red Cell Distribution Width 14.4 % (11.5-14.5) 14.7 % (11.5-14.5) Platelet Count 167 x10^3/uL (140-400) 171 x10^3/uL (140-400) Neutrophils (%) (Auto) 77 % (31-73) 72 % (31-73) Lymphocytes (%) (Auto) 13 % (24-48) 15 % (24-48) Monocytes (%) (Auto) 8 % (0-9) 7 % (0-9) Eosinophils (%) (Auto) 2 % (0-3) 5 % (0-3) Basophils (%) (Auto) 1 % (0-3) 0 % (0-3) Neutrophils # (Auto) 7.4 x10^3/uL (1.8-7.7) 5.9 x10^3/uL (1.8-7.7) Lymphocytes # (Auto) 1.2 x10^3/uL (1.0-4.8) 1.2 x10^3/uL (1.0-4.8) Monocytes # (Auto) 0.8 x10^3/uL (0.0-1.1) 0.6 x10^3/uL (0.0-1.1) Eosinophils # (Auto) 0.2 x10^3/uL (0.0-0.7) 0.4 x10^3/uL (0.0-0.7) Basophils # (Auto) 0.1 x10^3/uL (0.0-0.2) 0.0 x10^3/uL (0.0-0.2) Prothrombin Time 14.9 SEC (11.7-14.0) Prothromb Time International Ratio 1.2 (0.8-1.1) Sodium Level 142 mmol/L (136-145) 143 mmol/L (136-145) Potassium Level 3.4 mmol/L (3.5-5.1) 3.6 mmol/L (3.5-5.1) Chloride Level 104 mmol/L (98-107) 106 mmol/L (98-107) Carbon Dioxide Level 25 mmol/L (21-32) 24 mmol/L (21-32) Anion Gap 13 (6-14) 13 (6-14) Blood Urea Nitrogen 28 mg/dL (7-20) 23 mg/dL (7-20) Creatinine 1.8 mg/dL (0.6-1.0) 1.6 mg/dL (0.6-1.0) Estimated GFR (Cockcroft-Gault) 27.1 31.0 BUN/Creatinine Ratio 16 (6-20) 14 (6-20) Glucose Level 171 mg/dL (70-99) 139 mg/dL (70-99) Lactic Acid Level 1.1 mmol/L (0.4-2.0) Calcium Level 8.5 mg/dL (8.5-10.1) 8.5 mg/dL (8.5-10.1) Magnesium Level 1.2 mg/dL (1.8-2.4) 2.2 mg/dL (1.8-2.4) Total Bilirubin 0.6 mg/dL (0.2-1.0) 0.5 mg/dL (0.2-1.0) Aspartate Amino Transf (AST/SGOT) 11 U/L (15-37) 14 U/L (15-37) Alanine Aminotransferase (ALT/SGPT) 11 U/L (14-59) 10 U/L (14-59) Alkaline Phosphatase 75 U/L (46-116) 75 U/L (46-116) Creatine Kinase 62 U/L (26-192) Troponin I Quantitative 0.080 ng/mL (0.000-0.055) 0.064 ng/mL (0.000-0.055) TD-Nhk-K-Type Natriuretic Peptide 91415 pg/mL (0-449) Total Protein 6.1 g/dL (6.4-8.2) 6.0 g/dL (6.4-8.2) Albumin 2.9 g/dL (3.4-5.0) 2.8 g/dL (3.4-5.0) Albumin/Globulin Ratio 0.9 (1.0-1.7) 0.9 (1.0-1.7) Lipase 37 U/L (73-393) Urine Collection Type U cath Urine Color Yellow Urine Clarity Cloudy Urine pH 5.[address] 1.015 Urine Protein 100 mg/dL (NEG-TRACE) Urine Glucose (UA) Negative mg/dL (NEG) Urine Ketones (Stick) Negative mg/dL (NEG) Urine Blood Moderate (NEG) Urine Nitrite Positive (NEG) Urine Bilirubin Negative (NEG) Urine Urobilinogen Dipstick 0.2 mg/dL (0.2 mg/dL) Urine Leukocyte Esterase Large (NEG) Urine RBC Occ /HPF (0-2) Urine WBC >40 /HPF (0-4) Urine Squamous Epithelial Cells Few /LPF Urine Transitional Epithelial Cells Occ /LPF Urine Bacteria Many /HPF (0-FEW) Test 02/08/19 05:00 White Blood Count 7.6 x10^3/uL (4.0-11.0) Red Blood Count 4.01 x10^6/uL (3.50-5.40) Hemoglobin 12.9 g/dL (12.0-15.5) Hematocrit 38.6 % (36.0-47.0) Mean Corpuscular Volume 96 fL (79-100) Mean Corpuscular Hemoglobin 32 pg (25-35) Mean Corpuscular Hemoglobin Concent 33 g/dL (31-37) Red Cell Distribution Width 14.2 % (11.5-14.5) Platelet Count 164 x10^3/uL (140-400) Neutrophils (%) (Auto) 59 % (31-73) Lymphocytes (%) (Auto) 25 % (24-48) Monocytes (%) (Auto) 9 % (0-9) Eosinophils (%) (Auto) 7 % (0-3) Basophils (%) (Auto) 0 % (0-3) Neutrophils # (Auto) 4.5 x10^3/uL (1.8-7.7) Lymphocytes # (Auto) 1.9 x10^3/uL (1.0-4.8) Monocytes # (Auto) 0.7 x10^3/uL (0.0-1.1) Eosinophils # (Auto) 0.5 x10^3/uL (0.0-0.7) Basophils # (Auto) 0.0 x10^3/uL (0.0-0.2) Sodium Level 145 mmol/L (136-145) Potassium Level 3.7 mmol/L (3.5-5.1) Chloride Level 106 mmol/L (98-107) Carbon Dioxide Level 28 mmol/L (21-32) Anion Gap 11 (6-14) Blood Urea Nitrogen 27 mg/dL (7-20) Creatinine 1.9 mg/dL (0.6-1.0) Estimated GFR (Cockcroft-Gault) 25.4 BUN/Creatinine Ratio 14 (6-20) Glucose Level 105 mg/dL (70-99) Calcium Level 8.5 mg/dL (8.5-10.1) Total Bilirubin 0.3 mg/dL (0.2-1.0) Aspartate Amino Transf (AST/SGOT) 19 U/L (15-37) Alanine Aminotransferase (ALT/SGPT) 13 U/L (14-59) Alkaline Phosphatase 67 U/L (46-116) Total Protein 5.9 g/dL (6.4-8.2) Albumin 2.8 g/dL (3.4-5.0) Albumin/Globulin Ratio 0.9 (1.0-1.7) Laboratory Tests Test 02/08/19 05:00 White Blood Count 7.6 x10^3/uL (4.0-11.0) Red Blood Count 4.01 x10^6/uL (3.50-5.40) Hemoglobin 12.9 g/dL (12.0-15.5) Hematocrit 38.6 % (36.0-47.0) Mean Corpuscular Volume 96 fL (79-100) Mean Corpuscular Hemoglobin 32 pg (25-35) Mean Corpuscular Hemoglobin Concent 33 g/dL (31-37) Red Cell Distribution Width 14.2 % (11.5-14.5) Platelet Count 164 x10^3/uL (140-400) Neutrophils (%) (Auto) 59 % (31-73) Lymphocytes (%) (Auto) 25 % (24-48) Monocytes (%) (Auto) 9 % (0-9) Eosinophils (%) (Auto) 7 % (0-3) Basophils (%) (Auto) 0 % (0-3) Neutrophils # (Auto) 4.5 x10^3/uL (1.8-7.7) Lymphocytes # (Auto) 1.9 x10^3/uL (1.0-4.8) Monocytes # (Auto) 0.7 x10^3/uL (0.0-1.1) Eosinophils # (Auto) 0.5 x10^3/uL (0.0-0.7) Basophils # (Auto) 0.0 x10^3/uL (0.0-0.2) Sodium Level 145 mmol/L (136-145) Potassium Level 3.7 mmol/L (3.5-5.1) Chloride Level 106 mmol/L (98-107) Carbon Dioxide Level 28 mmol/L (21-32) Anion Gap 11 (6-14) Blood Urea Nitrogen 27 mg/dL (7-20) Creatinine 1.9 mg/dL (0.6-1.0) Estimated GFR (Cockcroft-Gault) 25.4 BUN/Creatinine Ratio 14 (6-20) Glucose Level 105 mg/dL (70-99) Calcium Level 8.5 mg/dL (8.5-10.1) Total Bilirubin 0.3 mg/dL (0.2-1.0) Aspartate Amino Transf (AST/SGOT) 19 U/L (15-37) Alanine Aminotransferase (ALT/SGPT) 13 U/L (14-59) Alkaline Phosphatase 67 U/L (46-116) Total Protein 5.9 g/dL (6.4-8.2) Albumin 2.8 g/dL (3.4-5.0) Albumin/Globulin Ratio 0.9 (1.0-1.7) Medications Active Scripts Medications Dose Route/Sig Max Daily Dose Days Date Category Benadryl (Diphenhydramine Hcl) 25 Mg Capsule 1 Cap PO QHS 30 02/06/19 Reported Cymbalta (Duloxetine Hcl) 20 Mg Capsule.dr 40 Mg PO DAILY 02/06/19 Reported Benazepril Hcl 40 Mg Tablet 1 Tab PO DAILY 02/06/19 Reported Glucosamine Chondroitin Cap (Glucos Sul 2Kcl/MSM/Chond/C/Mn) 1 Each Capsule 1 Each PO BID 02/06/19 Reported Calcium Carbonate 500 Mg Tablet 1 Tab PO BID 30 02/06/19 Reported Crestor (Rosuvastatin Calcium) 5 Mg Tablet 5 Mg PO HS 02/06/19 Reported Carvedilol 25 Mg Tablet 25 Mg PO BIDWMEALS 02/06/19 Reported Exemestane 25 Mg Tablet 25 Mg PO DAILY 10/19/17 Reported Gabapentin (Gabapentin) 300 Mg Capsule 300 Mg PO BID 10/19/17 Reported Multivitamins (Multivitamin) 1 Each Tablet 1 Tab PO DAILY 10/19/17 Reported Lasix (Furosemide) 20 Mg Tablet 20 Mg PO DAILY 05/09/17 Reported Lester 10-325 Tablet (Acetaminophen/Hydrocodone Bitart) 1 Each Tablet 1 Tab PO PRN Q4-6HRS PRN 05/09/17 Reported Klor-Con M20 (Potassium Chloride) 20 Meq Tab.er.prt 20 Meq PO DAILYWBKFT 30 11/30/16 Rx Aspirin Ec (Aspirin) 81 Mg Tablet.dr 81 Mg PO DAILYWBKFT 30 11/30/16 Rx Folic Acid 1 Mg Tablet 400 Mcg PO DAILY 11/22/16 Reported Levothyroxine Sodium 150 Mcg Tablet 1 Tab PO DAILY-2TABS WED-SAT 11/22/16 Reported Impression . IMPRESSION: 1. Obstructive sleep apnea. 2. Chronic obstructive pulmonary disease. 3. Diarrhea. 4. Cardiomyopathy. 5. Frbrk-zi-fsnzyff heart failure. 6. Hypothyroidism. 7. Hyperlipidemia. 8. Other comorbidities as listed above. Plan . CONTINUE THE SAME UP TO CHAIR PT 1. Continue nebulized treatments. 2. We will initiate CPAP at 16 cm of water pressure. 3. Antibiotics for UTI. GISELLE LAWSON MD Feb 08, 2019 08:21
[2019-02-08] MEDS: ASPIRIN ENTERIC COATED 81 MG TABLET.DR. PO SCH (08:33)
[2019-02-08] MEDS: CARVEDILOL 12.5 MG TABLET. PO SCH ×2 (08:34→18:02)
[2019-02-08] MEDS: POTASSIUM CHLORIDE 20 MEQ TABLET.ER. PO SCH (08:34)
[2019-02-08] MEDS: NON FORMULARY ITEM (Exemestane 25 MG) PO SCH (09:00)
--- NOTE | 2019-02-08 11:07 | PDOC ---
Subjective: Subjective: Tolerating diet. Had a soft/loose stool earlier. No abd pain. Objective: Vital Signs: Vital Signs Date Time Temp Pulse Resp B/P (MAP) Pulse Ox O2 Delivery O2 Flow Rate FiO2 02/08/19 10:33 97.5 69 18 145/75 (98) 96 BiPAP/CPAP 97.5 Labs: Laboratory Tests Test 02/08/19 05:00 White Blood Count 7.6 x10^3/uL Red Blood Count 4.01 x10^6/uL Hemoglobin 12.9 g/dL Hematocrit 38.6 % Mean Corpuscular Volume 96 fL Mean Corpuscular Hemoglobin 32 pg Mean Corpuscular Hemoglobin Concent 33 g/dL Red Cell Distribution Width 14.2 % Platelet Count 164 x10^3/uL Neutrophils (%) (Auto) 59 % Lymphocytes (%) (Auto) 25 % Monocytes (%) (Auto) 9 % Eosinophils (%) (Auto) 7 % Basophils (%) (Auto) 0 % Neutrophils # (Auto) 4.5 x10^3/uL Lymphocytes # (Auto) 1.9 x10^3/uL Monocytes # (Auto) 0.7 x10^3/uL Eosinophils # (Auto) 0.5 x10^3/uL Basophils # (Auto) 0.0 x10^3/uL Sodium Level 145 mmol/L Potassium Level 3.7 mmol/L Chloride Level 106 mmol/L Carbon Dioxide Level 28 mmol/L Anion Gap 11 Blood Urea Nitrogen 27 mg/dL Creatinine 1.9 mg/dL Estimated GFR (Cockcroft-Gault) 25.4 BUN/Creatinine Ratio 14 Glucose Level 105 mg/dL Calcium Level 8.5 mg/dL Total Bilirubin 0.3 mg/dL Aspartate Amino Transf (AST/SGOT) 19 U/L Alanine Aminotransferase (ALT/SGPT) 13 U/L Alkaline Phosphatase 67 U/L Total Protein 5.9 g/dL Albumin 2.8 g/dL Albumin/Globulin Ratio 0.9 BLOOD CULTURE Preliminary NO GROWTH AFTER 1 DAY Imaging: Echocardiogram <Conclusion> The systolic function is severely impaired. EF 30% There is global hypokinesis of the left ventricle. Limited TTE only PE: GEN: NAD - up in chair LUNGS: CTAB HEART: RRR ABD: NABS, S/ND/NT NEURO/PSYCH: A & O 3 A/P: CHF, CKD, UTI Chronic diarrhea - stable -- Stable GI-montes. JAVIER SIMMONS Feb 08, 2019 11:07
--- NOTE | 2019-02-08 11:53 | PDOC ---
CARDIO Progress Notes Date and Time Date of Service 02/08/2019 Time of Evaluation 0950 Subjective Subjective: No Chest Pain, No shortness of breath, No Palpitations, Other (feels much better today) Vitals Vitals Vital Signs Date Time Temp Pulse Resp B/P (MAP) Pulse Ox O2 Delivery O2 Flow Rate FiO2 02/08/19 11:35 198/92 (127) 02/08/19 10:33 97.5 69 18 96 BiPAP/CPAP 97.5 Weight Weight [ ] Input and Output Intake and Output Intake and Output 02/08/19 07:00 Intake Total 680 ml Output Total 1400 ml Balance -720 ml Intake Oral 680 ml Output Urine Total 1400 ml # Voids 1 Laboratory Labs Laboratory Tests Test 02/08/19 05:00 White Blood Count 7.6 x10^3/uL (4.0-11.0) Red Blood Count 4.01 x10^6/uL (3.50-5.40) Hemoglobin 12.9 g/dL (12.0-15.5) Hematocrit 38.6 % (36.0-47.0) Mean Corpuscular Volume 96 fL (79-100) Mean Corpuscular Hemoglobin 32 pg (25-35) Mean Corpuscular Hemoglobin Concent 33 g/dL (31-37) Red Cell Distribution Width 14.2 % (11.5-14.5) Platelet Count 164 x10^3/uL (140-400) Neutrophils (%) (Auto) 59 % (31-73) Lymphocytes (%) (Auto) 25 % (24-48) Monocytes (%) (Auto) 9 % (0-9) Eosinophils (%) (Auto) 7 % (0-3) Basophils (%) (Auto) 0 % (0-3) Neutrophils # (Auto) 4.5 x10^3/uL (1.8-7.7) Lymphocytes # (Auto) 1.9 x10^3/uL (1.0-4.8) Monocytes # (Auto) 0.7 x10^3/uL (0.0-1.1) Eosinophils # (Auto) 0.5 x10^3/uL (0.0-0.7) Basophils # (Auto) 0.0 x10^3/uL (0.0-0.2) Sodium Level 145 mmol/L (136-145) Potassium Level 3.7 mmol/L (3.5-5.1) Chloride Level 106 mmol/L (98-107) Carbon Dioxide Level 28 mmol/L (21-32) Anion Gap 11 (6-14) Blood Urea Nitrogen 27 mg/dL (7-20) Creatinine 1.9 mg/dL (0.6-1.0) Estimated GFR (Cockcroft-Gault) 25.4 BUN/Creatinine Ratio 14 (6-20) Glucose Level 105 mg/dL (70-99) Calcium Level 8.5 mg/dL (8.5-10.1) Total Bilirubin 0.3 mg/dL (0.2-1.0) Aspartate Amino Transf (AST/SGOT) 19 U/L (15-37) Alanine Aminotransferase (ALT/SGPT) 13 U/L (14-59) Alkaline Phosphatase 67 U/L (46-116) Total Protein 5.9 g/dL (6.4-8.2) Albumin 2.8 g/dL (3.4-5.0) Albumin/Globulin Ratio 0.9 (1.0-1.7) Microbiology Micro Microbiology 02/06/19 Blood Culture - Preliminary, Resulted NO GROWTH AFTER 1 DAY Physical Exam HEENT: Neck Supple W Full Motion Chest: Symmetric Heart: S1S2, RRR (SR with PVCs), no gallops, no murmurs, irregularly irregular Abdomen: Soft N/T Extremities: No Calf Tenderness, Other (trace LE edema) Neurology: alert, oriented, follow commands Assessment Assessment 1. Diarrhea: better. GI following 2. Syncope with nontraumatic fall: suspect from volume depletion. No arrhythmias so far 3. LUIS on CKD3: prerenal. Cr up to 1.9. per PCP 4. Hypokalemia/hypomagnesemia: resolved 5. NICM: EF now at 30%, compensated. NYHA1-2 6. ANNIKA: CPAP compliant Recommendations 1. Arrange for lifevest. stop lasix and will placed as PRN due to diarrheal issue. PCXR. Norvasc x1. 2. Continue secondary prevention measures. 3. Would consider [facility] as an outpt as she has not had any in the past to further delineate any ischemic etiology in regards to CM pending her renal function otherwise stress test. 4. Would be a consideration for entresto pending her renal function. BMP next week. 5. Monitor BP trend. HBPM 6. AICD consideration in 3 months after sufficient optimization LESLIE BARRIOS [employer] CLAIMS SPECIALIST Feb 08, 2019 11:53
[2019-02-08] MEDS ORDERED: amLODIPine BESYLATE 5 MG TABLET PO ONE (12:00)
--- NOTE | 2019-02-08 13:26 | PDOC ---
[employer] PROGRESS NOTE Chief Complaint Chief Complaint syncope with fall acute on chronic systolic CHF diarrhea UTI hypokalemia hypomag morbid obesity, BMI 35, with moderate malnutrition CKD3 NICM: EF last noted at 40% ANNIKA SOB History of Present Illness History of Present Illness 02/09/2019 Pt was seen and examined. Was resting comfortably on exam with no acute complaints. Would like advanced notice of discharged because her is paralyzed so she needs to arrange care for him while her grandson picks her up. BP was high per nursing (198/92) pt reports no symptoms. Reports breathing has improved but still reports KAYE. 02/07/2019 Pt was seen and examined. Was resting comfortably on exam. Complained of syncopal symptoms and recurrent diarrhea on exam. Also complains of difficulty breathing. Vitals/I&O Vitals/I&O: Vital Signs Date Time Temp Pulse Resp B/P (MAP) Pulse Ox O2 Delivery O2 Flow Rate FiO2 02/08/19 12:16 97 Room Air 02/08/19 11:59 63 198/92 02/08/19 10:33 97.5 18 97.5 I & O 02/07/19 02/07/19 02/08/19 15:00 23:00 07:00 Intake Total 240 ml 440 ml Output Total 700 ml 700 ml Balance 240 ml -260 ml -700 ml Physical Exam General: Alert, Oriented X3, Cooperative, No acute distress Heart: Regular rate (SR), Normal S1, Normal S2, Other (3/6 systolic apical murmur) Lungs: Clear, Other Abdomen: Normal bowel sounds, Soft, No tenderness Extremities: No cyanosis, No edema Skin: No breakdown, No significant lesion Labs Labs: Laboratory Tests Test 02/08/19 05:00 White Blood Count 7.6 x10^3/uL (4.0-11.0) Red Blood Count 4.01 x10^6/uL (3.50-5.40) Hemoglobin 12.9 g/dL (12.0-15.5) Hematocrit 38.6 % (36.0-47.0) Mean Corpuscular Volume 96 fL (79-100) Mean Corpuscular Hemoglobin 32 pg (25-35) Mean Corpuscular Hemoglobin Concent 33 g/dL (31-37) Red Cell Distribution Width 14.2 % (11.5-14.5) Platelet Count 164 x10^3/uL (140-400) Neutrophils (%) (Auto) 59 % (31-73) Lymphocytes (%) (Auto) 25 % (24-48) Monocytes (%) (Auto) 9 % (0-9) Eosinophils (%) (Auto) 7 % (0-3) Basophils (%) (Auto) 0 % (0-3) Neutrophils # (Auto) 4.5 x10^3/uL (1.8-7.7) Lymphocytes # (Auto) 1.9 x10^3/uL (1.0-4.8) Monocytes # (Auto) 0.7 x10^3/uL (0.0-1.1) Eosinophils # (Auto) 0.5 x10^3/uL (0.0-0.7) Basophils # (Auto) 0.0 x10^3/uL (0.0-0.2) Sodium Level 145 mmol/L (136-145) Potassium Level 3.7 mmol/L (3.5-5.1) Chloride Level 106 mmol/L (98-107) Carbon Dioxide Level 28 mmol/L (21-32) Anion Gap 11 (6-14) Blood Urea Nitrogen 27 mg/dL (7-20) Creatinine 1.9 mg/dL (0.6-1.0) Estimated GFR (Cockcroft-Gault) 25.4 BUN/Creatinine Ratio 14 (6-20) Glucose Level 105 mg/dL (70-99) Calcium Level 8.5 mg/dL (8.5-10.1) Total Bilirubin 0.3 mg/dL (0.2-1.0) Aspartate Amino Transf (AST/SGOT) 19 U/L (15-37) Alanine Aminotransferase (ALT/SGPT) 13 U/L (14-59) Alkaline Phosphatase 67 U/L (46-116) Total Protein 5.9 g/dL (6.4-8.2) Albumin 2.8 g/dL (3.4-5.0) Albumin/Globulin Ratio 0.9 (1.0-1.7) Review of Systems Review of Systems: Denies CP Denies SOB Denies N/V/D Assessment and Plan Assessmemt and Plan Problems Medical Problems: (1) Diarrhea Status: Acute (2) Elevated troponin I level Status: Acute (3) Fall Status: Acute (4) Generalized weakness Status: Acute (5) Hypomagnesemia Status: Acute (6) Urinary tract infection Status: Acute syncope with fall acute on chronic systolic CHF diarrhea UTI hypokalemia hypomag morbid obesity, BMI 35, with moderate malnutrition CKD3 NICM: EF last noted at 40% ANNIKA SOB Plan: 1) Per cardiology add amlodipine for pressure 2) Per pulmonary continue ceftriaxone for suspected URI 3) Plan to d/c tomorrow or monday depending on patient's condition and blood pressure 4) daily labs 5) PT/OT 6) DVT prophylaxis 7) Full code Comment Review of Relevant I have reviewed the following items chris (where applicable) has been applied. Medications: Current Medications Medications (Trade) Dose Ordered Sig/Hesham Route PRN Reason Start Time Stop Time Status Last Admin Dose Admin Ceftriaxone Sodium (Rocephin) 1 gm Q24H IVP 02/07/19 16:00 02/07/19 16:44 Lactobacillus Rhamnosus (Culturelle) 1 cap BID PO 02/07/19 21:00 02/08/19 08:01 Amlodipine Besylate (Norvasc) 10 mg 1X ONCE PO 02/08/19 12:00 02/08/19 12:01 DC 02/08/19 11:59 DARIANA LINARES III DO Feb 08, 2019 13:25
--- NOTE | 2019-02-08 15:26 | RAD ---
EXAM: Chest, single view. HISTORY: Congestive heart failure. COMPARISON: 08/16/2018 FINDINGS: A frontal view of the chest obtained. There is mild interstitial prominence without srinivasa congestion. There is no consolidation, pleural effusion or pneumothorax. The heart is normal in size. IMPRESSION: Mild interstitial prominence without srinivasa congestion. Electronically signed by: Naty Case MD (02/08/2019 3:23 PM) [facility]
[2019-02-08] MEDS: cefTRIAXone IV Push 1 GM VIAL. IVP SCH (16:35)
[2019-02-08] MEDS: amLODIPine BESYLATE 10 MG TABLET PO SCH (16:52)
[2019-02-08] MEDS ORDERED: NON FORMULARY ITEM (Exemestane 25 MG) PO SCH (17:00)
[2019-02-08] MEDS: HYDROcodone/APAP 10/325 1 TAB TABLET PO PRN (17:59)
--- NOTE | 2019-02-08 19:00 | NUR ---
Patient's life vest, is alarming with patient frantically yelling " take this off of me before I get shocked!" Ran thru troubleshooting with [employer] sales representative livestock and patient decided to leave it off for the night. Patient wants to explore other options with cardiology, does not want to wear life vest.
[2019-02-08] MEDS: diphenhydrAMINE HCL 25 MG CAPSULE PO SCH (20:50)
[2019-02-08] MEDS: AMOXICILLIN/K CLAV 500/125MG TABLET. PO SCH (20:50)
[2019-02-08] MEDS: ATORVASTATIN CALCIUM 20 MG TABLET PO SCH (20:50)
[2019-02-09] MEDS: HYDROcodone/APAP 10/325 1 TAB TABLET PO PRN (00:41)
[2019-02-09 03:58] VITALS: BP 137/80
[2019-02-09 04:11] LABS: BASO % 1 % (0-3); EOS # 0.5 x10^3/uL (0.0-0.7); EOS % 7 % (0-3); HEMATOCRIT 37.4 % (36.0-47.0); HEMOGLOBIN 12.6 g/dL (12.0-15.5); LYMPH % 27 % (24-48); MEAN CORPUSCULAR HEMOGLOBIN 32 pg (25-35); MEAN CORPUSCULAR HGB CONC 34 g/dL (31-37); MEAN CORPUSCULAR VOLUME 94 fL (79-100); MONO # 0.8 x10^3/uL (0.0-1.1); MONO % 10 % (0-9); NEUT # 4.1 x10^3/uL (1.8-7.7); NEUT % 56 % (31-73); PLATELET COUNT 160 x10^3/uL (140-400); RED BLOOD COUNT 3.97 x10^6/uL (3.50-5.40); RED CELL DISTRIBUTION WIDTH 14.3 % (11.5-14.5); WHITE BLOOD COUNT 7.3 x10^3/uL (4.0-11.0)
[2019-02-09 04:40] LABS: ALBUMIN 2.5 g/dL (3.4-5.0); ALBUMIN/GLOBULIN RATIO 0.7 (1.0-1.7); CALCIUM 8.7 mg/dL (8.5-10.1); CREATININE 1.8 mg/dL (0.6-1.0); GFR 27.1; POTASSIUM 3.5 mmol/L (3.5-5.1); TOTAL BILIRUBIN 0.3 mg/dL (0.2-1.0); TOTAL PROTEIN 6.2 g/dL (6.4-8.2)
[2019-02-09] MEDS: IPRATRPIUM/ALBUTEROL 0.5/2.5MG 3 ML NEBU. NEB SCH ×2 (07:20→11:35)
[2019-02-09 07:36] VITALS: BP 197/106
[2019-02-09] MEDS: LEVOTHYROXINE 150 MCG TABLET PO SCH (07:58)
[2019-02-09] MEDS: CARVEDILOL 12.5 MG TABLET. PO SCH (09:00)
[2019-02-09] MEDS: ASPIRIN ENTERIC COATED 81 MG TABLET.DR. PO SCH (09:01)
[2019-02-09] MEDS: AMOXICILLIN/K CLAV 500/125MG TABLET. PO SCH (09:01)
[2019-02-09] MEDS: POTASSIUM CHLORIDE 20 MEQ TABLET.ER. PO SCH (09:02)
[2019-02-09] MEDS: LACTOBACILLUS RHAMNOSUS GG 1 CAPSULE. PO SCH (09:03)
[2019-02-09] MEDS: DULoxetine HCL 20 MG CAPSULE.DR PO SCH (09:04)
[2019-02-09] MEDS: CALCIUM CARBONATE 500 MG TABLET PO SCH (09:05)
[2019-02-09] MEDS: FOLIC ACID 1 MG TABLET. PO SCH (09:05)
[2019-02-09] MEDS: MULTIVITAMIN with MINERAL TABLET. PO SCH (09:05)
[2019-02-09] MEDS: LISINOPRIL 20 MG TABLET PO SCH (09:07)
[2019-02-09] MEDS: GABAPENTIN 300 MG CAPSULE. PO SCH (09:08)
[2019-02-09] MEDS: amLODIPine BESYLATE 10 MG TABLET PO SCH (09:08)
--- NOTE | 2019-02-09 11:15 | PDOC ---
PULMONARY PROGRESS NOTES Subjective Pt. is up in chair, and ambulating in the room. Currently on room air. Reports she wore CPAP overnight Denies cough or SOA Vitals Vital Signs Date Time Temp Pulse Resp B/P (MAP) Pulse Ox O2 Delivery O2 Flow Rate FiO2 02/09/19 09:08 65 197/106 02/09/19 08:00 Room Air 02/09/19 07:36 97.6 14 94 97.6 ROS: No Nausea, No Chest Pain, No Abdominal Pain, No Increase Cough General: Alert Lungs: Clear Cardiovascular: S1 Abdomen: Soft Neuro Exam: Alert Extremities: No Edema Skin: Warm Labs Laboratory Tests Test 02/08/19 05:00 02/09/19 04:00 White Blood Count 7.6 x10^3/uL (4.0-11.0) 7.3 x10^3/uL (4.0-11.0) Red Blood Count 4.01 x10^6/uL (3.50-5.40) 3.97 x10^6/uL (3.50-5.40) Hemoglobin 12.9 g/dL (12.0-15.5) 12.6 g/dL (12.0-15.5) Hematocrit 38.6 % (36.0-47.0) 37.4 % (36.0-47.0) Mean Corpuscular Volume 96 fL (79-100) 94 fL (79-100) Mean Corpuscular Hemoglobin 32 pg (25-35) 32 pg (25-35) Mean Corpuscular Hemoglobin Concent 33 g/dL (31-37) 34 g/dL (31-37) Red Cell Distribution Width 14.2 % (11.5-14.5) 14.3 % (11.5-14.5) Platelet Count 164 x10^3/uL (140-400) 160 x10^3/uL (140-400) Neutrophils (%) (Auto) 59 % (31-73) 56 % (31-73) Lymphocytes (%) (Auto) 25 % (24-48) 27 % (24-48) Monocytes (%) (Auto) 9 % (0-9) 10 % (0-9) Eosinophils (%) (Auto) 7 % (0-3) 7 % (0-3) Basophils (%) (Auto) 0 % (0-3) 1 % (0-3) Neutrophils # (Auto) 4.5 x10^3/uL (1.8-7.7) 4.1 x10^3/uL (1.8-7.7) Lymphocytes # (Auto) 1.9 x10^3/uL (1.0-4.8) 2.0 x10^3/uL (1.0-4.8) Monocytes # (Auto) 0.7 x10^3/uL (0.0-1.1) 0.8 x10^3/uL (0.0-1.1) Eosinophils # (Auto) 0.5 x10^3/uL (0.0-0.7) 0.5 x10^3/uL (0.0-0.7) Basophils # (Auto) 0.0 x10^3/uL (0.0-0.2) 0.0 x10^3/uL (0.0-0.2) Sodium Level 145 mmol/L (136-145) 145 mmol/L (136-145) Potassium Level 3.7 mmol/L (3.5-5.1) 3.5 mmol/L (3.5-5.1) Chloride Level 106 mmol/L (98-107) 106 mmol/L (98-107) Carbon Dioxide Level 28 mmol/L (21-32) 31 mmol/L (21-32) Anion Gap 11 (6-14) 8 (6-14) Blood Urea Nitrogen 27 mg/dL (7-20) 27 mg/dL (7-20) Creatinine 1.9 mg/dL (0.6-1.0) 1.8 mg/dL (0.6-1.0) Estimated GFR (Cockcroft-Gault) 25.4 27.1 BUN/Creatinine Ratio 14 (6-20) 15 (6-20) Glucose Level 105 mg/dL (70-99) 128 mg/dL (70-99) Calcium Level 8.5 mg/dL (8.5-10.1) 8.7 mg/dL (8.5-10.1) Total Bilirubin 0.3 mg/dL (0.2-1.0) 0.3 mg/dL (0.2-1.0) Aspartate Amino Transf (AST/SGOT) 19 U/L (15-37) 14 U/L (15-37) Alanine Aminotransferase (ALT/SGPT) 13 U/L (14-59) 9 U/L (14-59) Alkaline Phosphatase 67 U/L (46-116) 59 U/L (46-116) Total Protein 5.9 g/dL (6.4-8.2) 6.2 g/dL (6.4-8.2) Albumin 2.8 g/dL (3.4-5.0) 2.5 g/dL (3.4-5.0) Albumin/Globulin Ratio 0.9 (1.0-1.7) 0.7 (1.0-1.7) Laboratory Tests Test 02/09/19 04:00 White Blood Count 7.3 x10^3/uL (4.0-11.0) Red Blood Count 3.97 x10^6/uL (3.50-5.40) Hemoglobin 12.6 g/dL (12.0-15.5) Hematocrit 37.4 % (36.0-47.0) Mean Corpuscular Volume 94 fL (79-100) Mean Corpuscular Hemoglobin 32 pg (25-35) Mean Corpuscular Hemoglobin Concent 34 g/dL (31-37) Red Cell Distribution Width 14.3 % (11.5-14.5) Platelet Count 160 x10^3/uL (140-400) Neutrophils (%) (Auto) 56 % (31-73) Lymphocytes (%) (Auto) 27 % (24-48) Monocytes (%) (Auto) 10 % (0-9) Eosinophils (%) (Auto) 7 % (0-3) Basophils (%) (Auto) 1 % (0-3) Neutrophils # (Auto) 4.1 x10^3/uL (1.8-7.7) Lymphocytes # (Auto) 2.0 x10^3/uL (1.0-4.8) Monocytes # (Auto) 0.8 x10^3/uL (0.0-1.1) Eosinophils # (Auto) 0.5 x10^3/uL (0.0-0.7) Basophils # (Auto) 0.0 x10^3/uL (0.0-0.2) Sodium Level 145 mmol/L (136-145) Potassium Level 3.5 mmol/L (3.5-5.1) Chloride Level 106 mmol/L (98-107) Carbon Dioxide Level 31 mmol/L (21-32) Anion Gap 8 (6-14) Blood Urea Nitrogen 27 mg/dL (7-20) Creatinine 1.8 mg/dL (0.6-1.0) Estimated GFR (Cockcroft-Gault) 27.1 BUN/Creatinine Ratio 15 (6-20) Glucose Level 128 mg/dL (70-99) Calcium Level 8.7 mg/dL (8.5-10.1) Total Bilirubin 0.3 mg/dL (0.2-1.0) Aspartate Amino Transf (AST/SGOT) 14 U/L (15-37) Alanine Aminotransferase (ALT/SGPT) 9 U/L (14-59) Alkaline Phosphatase 59 U/L (46-116) Total Protein 6.2 g/dL (6.4-8.2) Albumin 2.5 g/dL (3.4-5.0) Albumin/Globulin Ratio 0.7 (1.0-1.7) Medications Active Scripts Medications Dose Route/Sig Max Daily Dose Days Date Category Benadryl (Diphenhydramine Hcl) 25 Mg Capsule 1 Cap PO QHS 30 02/06/19 Reported Cymbalta (Duloxetine Hcl) 20 Mg Capsule.dr 40 Mg PO DAILY 02/06/19 Reported Benazepril Hcl 40 Mg Tablet 1 Tab PO DAILY 02/06/19 Reported Glucosamine Chondroitin Cap (Glucos Sul 2Kcl/MSM/Chond/C/Mn) 1 Each Capsule 1 Each PO BID 02/06/19 Reported Calcium Carbonate 500 Mg Tablet 1 Tab PO BID 30 02/06/19 Reported Crestor (Rosuvastatin Calcium) 5 Mg Tablet 5 Mg PO HS 02/06/19 Reported Carvedilol 25 Mg Tablet 25 Mg PO BIDWMEALS 02/06/19 Reported Exemestane 25 Mg Tablet 25 Mg PO DAILY 10/19/17 Reported Gabapentin (Gabapentin) 300 Mg Capsule 300 Mg PO BID 10/19/17 Reported Multivitamins (Multivitamin) 1 Each Tablet 1 Tab PO DAILY 10/19/17 Reported Lasix (Furosemide) 20 Mg Tablet 20 Mg PO DAILY 05/09/17 Reported [place] 10-325 Tablet (Acetaminophen/Hydrocodone Bitart) 1 Each Tablet 1 Tab PO PRN Q4-6HRS PRN 05/09/17 Reported Klor-Con M20 (Potassium Chloride) 20 Meq Tab.er.prt 20 Meq PO DAILYWBKFT 30 11/30/16 Rx Aspirin Ec (Aspirin) 81 Mg Tablet.dr 81 Mg PO DAILYWBKFT 30 11/30/16 Rx Folic Acid 1 Mg Tablet 400 Mcg PO DAILY 11/22/16 Reported Levothyroxine Sodium 150 Mcg Tablet 1 Tab PO DAILY-2TABS WED-SAT 11/22/16 Reported Impression . 1. Obstructive sleep apnea. 2. Chronic obstructive pulmonary disease. 3. Diarrhea. 4. Cardiomyopathy--EF 02/07/19-- The systolic function is severely impaired. EF 30% There is global hypokinesis of the left ventrical 5. [id number] heart failure. 6. Hypothyroidism. 7. Hyperlipidemia. Plan . 1. cont. cpap at hs and with day time napping ---cpap at 16cm h20 water pressure 2. cont. Physcial therapy 3. cont. bronchodilators 4. recs per cardiology 5. cont. Augmentin ok to D/C home from our stand point GISELLE LAWSON MD Feb 09, 2019 11:15
[2019-02-09 11:32] VITALS: BP 148/79
--- NOTE | 2019-02-09 12:15 | NUR ---
Assumed pt care at this time. Pt in chair watching tv. Denies any needs at this time. Just waiting for discharge paperwork. Call light within reach. Will return to monitor.
--- NOTE | 2019-02-09 12:27 | PDOC ---
[facility] [facility] PROGRESS NOTE Chief Complaint Chief Complaint syncope with fall acute on chronic systolic CHF diarrhea UTI hypokalemia hypomag morbid obesity, BMI 35, with moderate malnutrition CKD3 NICM: EF last noted at 40% ANNIKA SOB History of Present Illness History of Present Illness 02/09/2019 Pt was seen and examined. Pt was resting comfortably in recliner on exam. She reports being at her baseline and would like to be discharged. 02/08/2019 Pt was seen and examined. Was resting comfortably on exam with no acute complaints. Would like advanced notice of discharged because her is paralyzed so she needs to arrange care for him while her grandson picks her up. BP was high per nursing (198/92) pt reports no symptoms. Reports breathing has improved but still reports KAYE. 02/07/2019 Pt was seen and examined. Was resting comfortably on exam. Complained of syncopal symptoms and recurrent diarrhea on exam. Also complains of difficulty breathing. Vitals/I&O Vitals/I&O: Vital Signs Date Time Temp Pulse Resp B/P (MAP) Pulse Ox O2 Delivery O2 Flow Rate FiO2 02/09/19 11:35 96 Room Air 02/09/19 09:08 65 197/106 02/09/19 07:36 97.6 14 97.6 I & O 02/08/19 02/08/19 02/09/19 15:00 23:00 07:00 Intake Total 240 ml 500 ml Output Total 400 ml 600 ml 200 ml Balance -160 ml -600 ml 300 ml Physical Exam General: Alert, Oriented X3, Cooperative, No acute distress Heart: Regular rate (SR), Normal S1, Normal S2, Other (3/6 systolic apical murmur) Lungs: Clear Abdomen: Normal bowel sounds, Soft, No tenderness Extremities: No cyanosis, No edema Skin: No breakdown, No significant lesion Labs Labs: Laboratory Tests Test 02/09/19 04:00 White Blood Count 7.3 x10^3/uL (4.0-11.0) Red Blood Count 3.97 x10^6/uL (3.50-5.40) Hemoglobin 12.6 g/dL (12.0-15.5) Hematocrit 37.4 % (36.0-47.0) Mean Corpuscular Volume 94 fL (79-100) Mean Corpuscular Hemoglobin 32 pg (25-35) Mean Corpuscular Hemoglobin Concent 34 g/dL (31-37) Red Cell Distribution Width 14.3 % (11.5-14.5) Platelet Count 160 x10^3/uL (140-400) Neutrophils (%) (Auto) 56 % (31-73) Lymphocytes (%) (Auto) 27 % (24-48) Monocytes (%) (Auto) 10 % (0-9) Eosinophils (%) (Auto) 7 % (0-3) Basophils (%) (Auto) 1 % (0-3) Neutrophils # (Auto) 4.1 x10^3/uL (1.8-7.7) Lymphocytes # (Auto) 2.0 x10^3/uL (1.0-4.8) Monocytes # (Auto) 0.8 x10^3/uL (0.0-1.1) Eosinophils # (Auto) 0.5 x10^3/uL (0.0-0.7) Basophils # (Auto) 0.0 x10^3/uL (0.0-0.2) Sodium Level 145 mmol/L (136-145) Potassium Level 3.5 mmol/L (3.5-5.1) Chloride Level 106 mmol/L (98-107) Carbon Dioxide Level 31 mmol/L (21-32) Anion Gap 8 (6-14) Blood Urea Nitrogen 27 mg/dL (7-20) Creatinine 1.8 mg/dL (0.6-1.0) Estimated GFR (Cockcroft-Gault) 27.1 BUN/Creatinine Ratio 15 (6-20) Glucose Level 128 mg/dL (70-99) Calcium Level 8.7 mg/dL (8.5-10.1) Total Bilirubin 0.3 mg/dL (0.2-1.0) Aspartate Amino Transf (AST/SGOT) 14 U/L (15-37) Alanine Aminotransferase (ALT/SGPT) 9 U/L (14-59) Alkaline Phosphatase 59 U/L (46-116) Total Protein 6.2 g/dL (6.4-8.2) Albumin 2.5 g/dL (3.4-5.0) Albumin/Globulin Ratio 0.7 (1.0-1.7) Assessment and Plan Assessmemt and Plan Problems Medical Problems: (1) Diarrhea Status: Acute (2) Elevated troponin I level Status: Acute (3) Fall Status: Acute (4) Generalized weakness Status: Acute (5) Hypomagnesemia Status: Acute (6) Urinary tract infection Status: Acute syncope with fall acute on chronic systolic CHF diarrhea UTI hypokalemia hypomag morbid obesity, BMI 35, with moderate malnutrition CKD3 NICM: EF last noted at 40% ANNIKA SOB Plan: 1) Plan to D/C patient today if ok with cardiology 2) Continue cardiology recommendations on HTN management 3) PT/OT 4) Full Code 5) DVT prophylaxis Comment Review of Relevant I have reviewed the following items chris (where applicable) has been applied. Medications: Current Medications Medications (Trade) Dose Ordered Sig/H[place]ham Route PRN Reason Start Time Stop Time Status Last Admin Dose Admin Non-Formulary Medication (Exemestane ) 25 mg DAILYWSUP PO 02/08/19 17:00 02/08/19 17:59 Amlodipine Besylate (Norvasc) 10 mg DAILY PO 02/08/19 17:00 02/09/19 09:08 Amoxicillin/ Clavulanate Potassium (Augmentin 500/ 125mg) 1 tab BID PO 02/08/19 21:00 02/09/19 09:01 DARIANA LINARES III DO Feb 09, 2019 12:26
[2019-02-09] MEDS ORDERED: FURO20TA3 PO (12:55)
[2019-02-09] MEDS ORDERED: AMOX1TAB58 PO (12:59)
--- NOTE | 2019-02-09 13:53 | NUR ---
Pt discharged home with self care. Discharge instructions discussed with patient and daughter. Both verbalized understanding. [facility]in script called into [facility] [place] per pt request. Belongings were packed by pt and family. Assisted pt into wheelchair and was secured in vehicle with daughter.
--- NOTE | 2019-02-09 14:31 | PDOC ---
PROGRESS NOTES Subjective Subjective Patient seen and examined Objective Objective Vital Signs Date Time Temp Pulse Resp B/P (MAP) Pulse Ox O2 Delivery O2 Flow Rate FiO2 02/09/19 11:35 96 Room Air 02/09/19 11:32 65 14 148/79 (102) 02/09/19 07:36 97.6 97.6 Intake and Output 02/09/19 07:00 Intake Total 740 ml Output Total 1200 ml Balance -460 ml Intake Oral 740 ml Output Urine Total 1200 ml # Voids 1 Physical Exam Abdomen: Normal bowel sounds Heart: Regular rate General: No acute distress Lungs: Other (slightly decreased breath sounds) Assessment Assessment Problems Medical Problems: (1) Diarrhea Status: Acute (2) Elevated troponin I level Status: Acute (3) Fall Status: Acute (4) Generalized weakness Status: Acute (5) Hypomagnesemia Status: Acute (6) Urinary tract infection Status: Acute Diarrhea. Resolved. Patient feeling better. GI following. Syncope. Probably from volume depletion. Rhythm has been stable. Acute kidney injury. As per the primary service. Nonischemic cardiomyopathy. Ejection fraction at 30%. Compensated. We'll continue to monitor. She was unable to wear LifeVest. Will follow-up in the office and consider outpatient heart catheterization as well as treatment with Entresto. Future AICD consideration based on clinical course and LV function. Comment Review of Relevant I have reviewed the following items chris (where applicable) has been applied. Labs Laboratory Tests Test 02/08/19 05:00 02/09/19 04:00 White Blood Count 7.6 x10^3/uL (4.0-11.0) 7.3 x10^3/uL (4.0-11.0) Red Blood Count 4.01 x10^6/uL (3.50-5.40) 3.97 x10^6/uL (3.50-5.40) Hemoglobin 12.9 g/dL (12.0-15.5) 12.6 g/dL (12.0-15.5) Hematocrit 38.6 % (36.0-47.0) 37.4 % (36.0-47.0) Mean Corpuscular Volume 96 fL (79-100) 94 fL (79-100) Mean Corpuscular Hemoglobin 32 pg (25-35) 32 pg (25-35) Mean Corpuscular Hemoglobin Concent 33 g/dL (31-37) 34 g/dL (31-37) Red Cell Distribution Width 14.2 % (11.5-14.5) 14.3 % (11.5-14.5) Platelet Count 164 x10^3/uL (140-400) 160 x10^3/uL (140-400) Neutrophils (%) (Auto) 59 % (31-73) 56 % (31-73) Lymphocytes (%) (Auto) 25 % (24-48) 27 % (24-48) Monocytes (%) (Auto) 9 % (0-9) 10 % (0-9) Eosinophils (%) (Auto) 7 % (0-3) 7 % (0-3) Basophils (%) (Auto) 0 % (0-3) 1 % (0-3) Neutrophils # (Auto) 4.5 x10^3/uL (1.8-7.7) 4.1 x10^3/uL (1.8-7.7) Lymphocytes # (Auto) 1.9 x10^3/uL (1.0-4.8) 2.0 x10^3/uL (1.0-4.8) Monocytes # (Auto) 0.7 x10^3/uL (0.0-1.1) 0.8 x10^3/uL (0.0-1.1) Eosinophils # (Auto) 0.5 x10^3/uL (0.0-0.7) 0.5 x10^3/uL (0.0-0.7) Basophils # (Auto) 0.0 x10^3/uL (0.0-0.2) 0.0 x10^3/uL (0.0-0.2) Sodium Level 145 mmol/L (136-145) 145 mmol/L (136-145) Potassium Level 3.7 mmol/L (3.5-5.1) 3.5 mmol/L (3.5-5.1) Chloride Level 106 mmol/L (98-107) 106 mmol/L (98-107) Carbon Dioxide Level 28 mmol/L (21-32) 31 mmol/L (21-32) Anion Gap 11 (6-14) 8 (6-14) Blood Urea Nitrogen 27 mg/dL (7-20) 27 mg/dL (7-20) Creatinine 1.9 mg/dL (0.6-1.0) 1.8 mg/dL (0.6-1.0) Estimated GFR (Cockcroft-Gault) 25.4 27.1 BUN/Creatinine Ratio 14 (6-20) 15 (6-20) Glucose Level 105 mg/dL (70-99) 128 mg/dL (70-99) Calcium Level 8.5 mg/dL (8.5-10.1) 8.7 mg/dL (8.5-10.1) Total Bilirubin 0.3 mg/dL (0.2-1.0) 0.3 mg/dL (0.2-1.0) Aspartate Amino Transf (AST/SGOT) 19 U/L (15-37) 14 U/L (15-37) Alanine Aminotransferase (ALT/SGPT) 13 U/L (14-59) 9 U/L (14-59) Alkaline Phosphatase 67 U/L (46-116) 59 U/L (46-116) Total Protein 5.9 g/dL (6.4-8.2) 6.2 g/dL (6.4-8.2) Albumin 2.8 g/dL (3.4-5.0) 2.5 g/dL (3.4-5.0) Albumin/Globulin Ratio 0.9 (1.0-1.7) 0.7 (1.0-1.7) Laboratory Tests Test 02/09/19 04:00 White Blood Count 7.3 x10^3/uL (4.0-11.0) Red Blood Count 3.97 x10^6/uL (3.50-5.40) Hemoglobin 12.6 g/dL (12.0-15.5) Hematocrit 37.4 % (36.0-47.0) Mean Corpuscular Volume 94 fL (79-100) Mean Corpuscular Hemoglobin 32 pg (25-35) Mean Corpuscular Hemoglobin Concent 34 g/dL (31-37) Red Cell Distribution Width 14.3 % (11.5-14.5) Platelet Count 160 x10^3/uL (140-400) Neutrophils (%) (Auto) 56 % (31-73) Lymphocytes (%) (Auto) 27 % (24-48) Monocytes (%) (Auto) 10 % (0-9) Eosinophils (%) (Auto) 7 % (0-3) Basophils (%) (Auto) 1 % (0-3) Neutrophils # (Auto) 4.1 x10^3/uL (1.8-7.7) Lymphocytes # (Auto) 2.0 x10^3/uL (1.0-4.8) Monocytes # (Auto) 0.8 x10^3/uL (0.0-1.1) Eosinophils # (Auto) 0.5 x10^3/uL (0.0-0.7) Basophils # (Auto) 0.0 x10^3/uL (0.0-0.2) Sodium Level 145 mmol/L (136-145) Potassium Level 3.5 mmol/L (3.5-5.1) Chloride Level 106 mmol/L (98-107) Carbon Dioxide Level 31 mmol/L (21-32) Anion Gap 8 (6-14) Blood Urea Nitrogen 27 mg/dL (7-20) Creatinine 1.8 mg/dL (0.6-1.0) Estimated GFR (Cockcroft-Gault) 27.1 BUN/Creatinine Ratio 15 (6-20) Glucose Level 128 mg/dL (70-99) Calcium Level 8.7 mg/dL (8.5-10.1) Total Bilirubin 0.3 mg/dL (0.2-1.0) Aspartate Amino Transf (AST/SGOT) 14 U/L (15-37) Alanine Aminotransferase (ALT/SGPT) 9 U/L (14-59) Alkaline Phosphatase 59 U/L (46-116) Total Protein 6.2 g/dL (6.4-8.2) Albumin 2.5 g/dL (3.4-5.0) Albumin/Globulin Ratio 0.7 (1.0-1.7) Microbiology 02/06/19 Urine Culture - Preliminary, Resulted 02/06/19 Urine Culture Result 1 (BEST) - Preliminary, Resulted 02/06/19 Blood Culture - Preliminary, Resulted NO GROWTH AFTER 3 DAYS Medications Current Medications Sodium Chloride 1,000 ml @ 200 mls/hr Q5H IV Last administered on 02/06/19at 13:19; Start 02/06/19 at 12:10; Stop 02/06/19 at 15:40; Status DC Ondansetron HCl (Zofran) 4 mg PRN Q8HRS PRN IV NAUSEA/VOMITING; Start 02/06/19 at 15:00; Stop 02/06/19 at 20:00; Status DC Magnesium Sulfate 100 ml @ 25 mls/hr 1X ONCE IV Last administered on 02/06/19at 16:07; Start 02/06/19 at 16:00; Stop 02/06/19 at 19:59; Status DC Ceftriaxone Sodium (Rocephin) 1 gm DAILY16 ONCE IVP Last administered on 02/06/19at 16:05; Start 02/06/19 at 16:00; Stop 02/06/19 at 16:01; Status DC Carvedilol (Coreg) 25 mg BIDWMEALS PO Last administered on 02/09/19at 09:00; Start 02/06/19 at 18:00; Stop 02/09/19 at 13:56; Status DC Aspirin (Ecotrin) 81 mg DAILYWBKFT PO Last administered on 02/09/19at 09:01; Start 02/07/19 at 08:00; Stop 02/09/19 at 13:56; Status DC Calcium Carbonate/ Glycine (Oscal) 500 mg BID PO Last administered on 02/09/19 09:05; Start 02/06/19 at 21:00; Stop 02/09/19 at 13:56; Status DC Diphenhydramine HCl (Benadryl) 25 mg QHS PO Last administered on 02/08/19at 20:50; Start 02/06/19 at 21:00; Stop 02/09/19 at 13:56; Status DC Duloxetine HCl (Cymbalta) 40 mg DAILY PO Last administered on 02/09/19 09:04; Start 02/07/19 at 09:00; Stop 02/09/19 at 13:56; Status DC Folic Acid (Folic Acid) 0.5 mg DAILY PO Last administered on 02/09/19 09:05; Start 02/07/19 at 09:00; Stop 02/09/19 at 13:56; Status DC Furosemide (Lasix) 20 mg DAILY PO Last administered on 02/08/19at 08:00; Start 02/07/19 at 09:00; Stop 02/08/19 at 11:46; Status DC Gabapentin (Neurontin) 300 mg BID PO Last administered on 02/09/19at 09:08; Start 02/06/19 at 21:00; Stop 02/09/19 at 13:56; Status DC Acetaminophen/ Hydrocodone Bitart (Lortab 10/325) 1 tab PRN Q8HRS PRN PO PAIN Last administered on 02/09/19at 00:41; Start 02/06/19 at 18:00; Stop 02/09/19 at 13:56; Status DC Levothyroxine Sodium (Synthroid) 150 mcg PRN Q8HRS PRN PO PAIN; Start 02/06/19 at 18:00; Stop 02/07/19 at 01:42; Status DC Potassium Chloride (Klor-Con) 20 meq DAILYWBKFT PO Last administered on 02/09/19at 09:02; Start 02/07/19 at 08:00; Stop 02/09/19 at 13:56; Status DC Lisinopril (Prinivil) 40 mg DAILY PO Last administered on 02/09/19at 09:07; Start 02/07/19 at 09:00; Stop 02/09/19 at 13:56; Status DC Carvedilol (Coreg) 25 mg BIDWMEALS PO ; Start 02/07/19 at 08:00; Status Cancel Non-Formulary Medication (Exemestane ) 25 mg DAILY PO ; Start 02/07/19 at 09:00; Stop 02/08/19 at 14:31; Status DC Non-Formulary Medication (Glucos Sul 2Kcl/ MSM/Chond/C/Mn (Glucosamine Chondroitin Cap)) 1 each BID PO ; Start 02/06/19 at 21:00; Status UNV Multivitamins (Thera M Plus) 1 tab DAILY PO Last administered on 02/09/19at 09:05; Start 02/07/19 at 09:00; Stop 02/09/19 at 13:56; Status DC Atorvastatin Calcium (Lipitor) 20 mg QHS PO Last administered on 02/08/19at 20:50; Start 02/06/19 at 21:00; Stop 02/09/19 at 13:56; Status DC Potassium Chloride (Klor-Con) 20 meq 1X ONCE PO Last administered on 02/06/19 22:18; Start 02/06/19 at 22:00; Stop 02/06/19 at 22:01; Status DC Levothyroxine Sodium (Synthroid) 150 mcg DAILY06 PO Last administered on 02/09/19at 07:58; Start 02/07/19 at 06:00; Stop 02/09/19 at 13:56; Status DC Albuterol/ Ipratropium (Duoneb) 3 ml 1X ONCE NEB Last administered on 02/07/19at 08:20; Start 02/07/19 at 08:00; Stop 02/07/19 at 08:13; Status DC Ceftriaxone Sodium (Rocephin) 1 gm Q24H IVP Last administered on 02/08/19 16:35; Start 02/07/19 at 16:00; Stop 02/08/19 at 17:57; Status DC Albuterol/ Ipratropium (Duoneb) 3 ml RTQID NEB Last administered on 02/09/19at 11:35; Start 02/07/19 at 12:00; Stop 02/09/19 at 13:56; Status DC Lactobacillus Rhamnosus (Culturelle) 1 cap BID PO Last administered on 02/09/19at 09:03; Start 02/07/19 at 21:00; Stop 02/09/19 at 13:56; Status DC Amlodipine Besylate (Norvasc) 10 mg 1X ONCE PO Last administered on 02/08/19at 11:59; Start 02/08/19 at 12:00; Stop 02/08/19 at 12:01; Status DC Non-Formulary Medication (Exemestane ) 25 mg DAILYWSUP PO Last administered on 02/08/19 17:59; Start 02/08/19 at 17:00; Stop 02/09/19 at 13:56; Status DC Amlodipine Besylate (Norvasc) 10 mg DAILY PO Last administered on 02/09/19 09:08; Start 02/08/19 at 17:00; Stop 02/09/19 at 13:56; Status DC Amoxicillin/ Clavulanate Potassium (Augmentin 500/ 125mg) 1 tab BID PO Last administered on 02/09/19at 09:01; Start 02/08/19 at 21:00; Stop 02/09/19 at 13:56; Status DC Active Scripts Active Klor-Con M20 (Potassium Chloride) 20 Meq Tab.er.prt 20 Meq PO DAILYWBKFT 30 Days Aspirin Ec (Aspirin) 81 Mg Tablet. 81 Mg PO DAILYWBKFT 30 Days Reported Augmentin 500-125 Tablet (Amoxicillin/Potassium Clav) 1 Each Tablet 1 Tab PO BID 7 Days Furosemide 20 Mg Tablet 1 Tab PO PRN Benadryl (Diphenhydramine Hcl) 25 Mg Capsule 1 Cap PO QHS 30 Days Cymbalta (Duloxetine Hcl) 20 Mg Capsule. 40 Mg PO DAILY Benazepril Hcl 40 Mg Tablet 1 Tab PO DAILY Glucosamine Chondroitin Cap (Glucos Sul 2Kcl/MSM/Chond/C/Mn) 1 Each Capsule 1 Each PO BID Calcium Carbonate 500 Mg Tablet 1 Tab PO BID 30 Days Crestor (Rosuvastatin Calcium) 5 Mg Tablet 5 Mg PO HS Carvedilol 25 Mg Tablet 25 Mg PO BIDWMEALS Exemestane 25 Mg Tablet 25 Mg PO DAILY Gabapentin (Gabapentin) 300 Mg Capsule 300 Mg PO BID Multivitamins (Multivitamin) 1 Each Tablet 1 Tab PO DAILY [place] 10-325 Tablet (Acetaminophen/Hydrocodone Bitart) 1 Each Tablet 1 Tab PO PRN Q4-6HRS PRN Folic Acid 1 Mg Tablet 400 Mcg PO DAILY Levothyroxine Sodium 150 Mcg Tablet 1 Tab PO DAILY-2TABS WED-SAT Vitals/I & O Vital Sign - Last 24 Hours 02/08/19 02/08/19 02/08/19 02/08/19 14:49 14:51 17:59 18:02 Temp 97.2 97.2 Pulse 71 78 Resp 18 B/P (MAP) 149/81 (103) 202/108 Pulse Ox 97 95 O2 Delivery Room Air Room Air Room Air 02/08/19 02/08/19 02/08/19 02/08/19 19:35 20:00 20:39 20:54 Temp 98.1 98.1 Pulse 74 120 108 Resp 16 B/P (MAP) 158/78 (104) 128/80 (96) 115/85 (95) Pulse Ox 95 O2 Delivery Room Air Room Air 02/08/19 02/08/19 02/08/19 02/08/19 21:09 21:24 21:39 21:54 Pulse 104 110 106 100 B/P (MAP) 133/71 (91) 145/93 (110) 139/91 (107) 132/85 (101) 02/08/19 02/08/19 02/08/19 02/08/19 22:24 22:42 22:54 23:09 Temp 97.5 97.5 Pulse 100 67 96 102 Resp 20 B/P (MAP) 135/72 (93) 154/72 (99) 137/86 (103) 136/84 (101) Pulse Ox 93 O2 Delivery BiPAP/CPAP 02/08/19 02/09/19 02/09/19 02/09/19 23:39 00:05 00:41 03:22 Pulse 102 B/P (MAP) 136/76 (96) O2 Delivery Ventilator BiPAP/CPAP Ventilator 02/09/19 02/09/19 02/09/19 02/09/19 03:58 07:20 07:36 08:00 Temp 97.7 97.6 97.7 97.6 Pulse 63 74 Resp 14 14 B/P (MAP) 137/80 (99) 197/106 (136) Pulse Ox 93 94 94 O2 Delivery BiPAP/CPAP Room Air Room Air Room Air 02/09/19 02/09/19 02/09/19 02/09/19 09:00 09:07 09:08 11:32 Pulse 79 68 65 65 Resp 14 B/P (MAP) 197/106 197/106 197/106 148/79 (102) Pulse Ox 95 O2 Delivery Room Air 02/09/19 11:35 Pulse Ox 96 O2 Delivery Room Air Intake and Output 02/08/19 02/08/19 02/09/19 15:00 23:00 07:00 Intake Total 240 ml 500 ml Output Total 400 ml 600 ml 200 ml Balance -160 ml -600 ml 300 ml MARCO ANTONIO ROCHA MD Feb 09, 2019 14:31
--- NOTE | 2019-02-10 21:14 | DS ---
DATE OF DISCHARGE: 02/09/2019 ADMISSION DIAGNOSIS: Congestive heart failure. DISCHARGE DIAGNOSIS: Resolving acute on chronic systolic and diastolic heart failure. HOSPITAL COURSE: The patient is a pleasant 78-year-old female, who presented with heart failure. She was admitted. We diuresed her. She did have some diarrhea for the first day, but that seemed to resolve. Yesterday, we saw and examined her. She was doing good. We discharged to home with close outpatient followup. DISPOSITION: Home. ACTIVITY: As tolerated. DIET: Low sodium. MEDICATIONS: Please see the MRAD. TOTAL TIME: 34 minutes. NIAL Julio LINARES DO DR: FATIMAH/megha JOB#: [id number] / [id number]
== END 2019-02-09 13:45 | disposition home or self-care (01) | DRG 291 ==
LOC: ER 11:28 → 2 SOUTH 14:15
PROVIDERS: ADMIT Internal Medicine; ATTEND Internal Medicine
PROC: 5A09357 Assistance with Respiratory Ventilation, Less than 24 Consecutive Hours, Continuous Positive Airway Pressure (ICD-10-PCS; principal; 2019-02-07)
PROC: 5A09357 Assistance with Respiratory Ventilation, Less than 24 Consecutive Hours, Continuous Positive Airway Pressure (ICD-10-PCS; 2019-02-08)
PROC: 5A09357 Assistance with Respiratory Ventilation, Less than 24 Consecutive Hours, Continuous Positive Airway Pressure (ICD-10-PCS; 2019-02-09)
DX: I13.0 Hypertensive heart and chronic kidney disease with heart failure and stage 1 through stage 4 chronic kidney disease, or unspecified chronic kidney disease (principal); I50.43 Acute on chronic combined systolic (congestive) and diastolic (congestive) heart failure; N17.9 Acute kidney failure, unspecified; N39.0 Urinary tract infection, site not specified; E44.0 Moderate protein-calorie malnutrition; I42.9 Cardiomyopathy, unspecified; E11.40 Type 2 diabetes mellitus with diabetic neuropathy, unspecified; G89.29 Other chronic pain; E83.42 Hypomagnesemia; E78.5 Hyperlipidemia, unspecified; K57.90 Diverticulosis of intestine, part unspecified, without perforation or abscess without bleeding; N18.3 Chronic kidney disease, stage 3 (moderate); E87.6 Hypokalemia; E66.01 Morbid (severe) obesity due to excess calories; E89.0 Postprocedural hypothyroidism; Z96.653 Presence of artificial knee joint, bilateral; G47.33 Obstructive sleep apnea (adult) (pediatric); J44.9 Chronic obstructive pulmonary disease, unspecified; E86.9 Volume depletion, unspecified; E11.22 Type 2 diabetes mellitus with diabetic chronic kidney disease; Z90.711 Acquired absence of uterus with remaining cervical stump; Z88.5 Allergy status to narcotic agent; Z88.2 Allergy status to sulfonamides; Z85.3 Personal history of malignant neoplasm of breast; Z68.35 Body mass index [BMI] 35.0-35.9, adult; I25.2 Old myocardial infarction; Z86.73 Personal history of transient ischemic attack (TIA), and cerebral infarction without residual deficits
CPT/HCPCS: 36415; 70450; 71045; 80053; 81001; 82550; 83605; 83690; 83735; 83880; 84484; 85025; 85610; 87040; 87086; 87186; 93005; 93308; 94640; 94660; 94760; 96361; 96365; 96375; J0696; J3475; J7030; J7620; P9612; Q0163; 99285-25; G0378

== ENCOUNTER 2019-06-01 11:41 | Emergency (ER) | payer MEDICARE, OTHER ==
[~2019-06-01] VITALS: Ht 165.1 cm; Wt 101.6 kg
[~2019-06-01 11:41] MED LIST changes: +AMOX1TAB58 PO; +BUDE10.2 IH; +CALC500T31 PO; +CARV25TA2 PO; +DIPH25CA58 PO; +DULO20CA PO; +FURO20TA3 PO; +GLUC-158 PO
--- NOTE | 2019-06-01 12:13 | PHYS DOC ---
Past Medical History Past Medical History: CHF, Diabetes-Type II, Hypertension, Hypothyroid, Other Additional Past Medical Histor: CHRONIC BACK PAIN,NEUROPATHY,CHRONIC DIARRHEA & BLOOD IN STOOL Past Surgical History: Hysterectomy, Tonsillectomy, Other Additional Past Surgical Histo: BACK,HEMORRHOID,KNEE,THYROID X 2,RETINA REATTACHMENT,CATARACT,CARPAL TUNNEL Smoking Status: Never Smoker Alcohol Use: None Drug Use: None Adult General Chief Complaint Chief Complaint: WEIGHT GAIN [facility] HPI Patient is a 78 year old female with past medical history significant for congestive heart failure who presents secondary to increased weight gain and shortness of breath. The patient was recently hospitalized at the beginning of May and discharged on May 10. She was admitted for weakness and renal insufficiency, treated by congestive heart failure. Ultimately when she was discharged there was a confusion and she has not been taking her Lasix since at time. Family reports a 10 pound weight gain overnight Review of Systems Review of Systems All other ROS is negative unless otherwise stated in HPI Current Medications Current Medications Current Medications Medications (Trade) Dose Ordered Sig/Hesham Start Time Stop Time Status Last Admin Dose Admin Furosemide (Lasix) 20 mg 1X ONCE 06/01/19 12:15 06/01/19 12:16 DC 06/01/19 12:43 20 MG Allergies Allergies Allergies Coded Allergies Type Severity Reaction Last Updated Verified Sulfa (Sulfonamide Antibiotics) Allergy Intermediate HIVES 04/10/17 Yes morphine Adverse Reaction Intermediate Nausea 04/10/17 Yes Physical Exam Physical Exam See above Constitutional: Well developed, well nourished, no acute distress, non-toxic appearance. [] HENT: Normocephalic, atraumatic, bilateral external ears normal, oropharynx moist, no oral exudates, nose normal. [] Eyes: PERRLA, EOMI, conjunctiva normal, no discharge. [] Neck: Normal range of motion, no tenderness, supple, no stridor. [] Cardiovascular:Heart rate regular rhythm, no murmur [] Lungs & Thorax: Crackles bilateral bases Abdomen: Bowel sounds normal, soft, no tenderness, no masses, no pulsatile masses. [] Skin: Warm, dry, no erythema, no rash. [] Back: No tenderness, no CVA tenderness. [] Extremities: No tenderness, no cyanosis, no clubbing, ROM intact, 1-2+ bilateral lower extremity edema Neurologic: Alert and oriented X 3, normal motor function, normal sensory function, no focal deficits noted. [] Psychologic: Affect normal, judgement normal, mood normal. [] Current Patient Data Vital Signs Vital Signs Date Time Temp Pulse Resp B/P (MAP) Pulse Ox O2 Delivery O2 Flow Rate FiO2 06/01/19 12:00 98.1 63 16 186/84 (118) 96 Room Air 98.1 Lab Values Laboratory Tests Test 06/01/19 12:32 White Blood Count 9.7 x10^3/uL (4.0-11.0) Red Blood Count 3.94 x10^6/uL (3.50-5.40) Hemoglobin 12.2 g/dL (12.0-15.5) Hematocrit 37.0 % (36.0-47.0) Mean Corpuscular Volume 94 fL (79-100) Mean Corpuscular Hemoglobin 31 pg (25-35) Mean Corpuscular Hemoglobin Concent 33 g/dL (31-37) Red Cell Distribution Width 15.6 % (11.5-14.5) H Platelet Count 204 x10^3/uL (140-400) Neutrophils (%) (Auto) 71 % (31-73) Lymphocytes (%) (Auto) 17 % (24-48) L Monocytes (%) (Auto) 8 % (0-9) Eosinophils (%) (Auto) 4 % (0-3) H Basophils (%) (Auto) 1 % (0-3) Neutrophils # (Auto) 6.9 x10^3/uL (1.8-7.7) Lymphocytes # (Auto) 1.6 x10^3/uL (1.0-4.8) Monocytes # (Auto) 0.8 x10^3/uL (0.0-1.1) Eosinophils # (Auto) 0.3 x10^3/uL (0.0-0.7) Basophils # (Auto) 0.1 x10^3/uL (0.0-0.2) Sodium Level 140 mmol/L (136-145) Potassium Level 4.3 mmol/L (3.5-5.1) Chloride Level 104 mmol/L (98-107) Carbon Dioxide Level 30 mmol/L (21-32) Anion Gap 6 (6-14) Blood Urea Nitrogen 31 mg/dL (7-20) H Creatinine 1.9 mg/dL (0.6-1.0) H Estimated GFR (Cockcroft-Gault) 25.4 Glucose Level 145 mg/dL (70-99) H Calcium Level 9.1 mg/dL (8.5-10.1) Troponin I Quantitative 0.018 ng/mL (0.000-0.055) XL-Jwj-[id number]-Type Natriuretic Peptide 32793 pg/mL (0-449) H Laboratory Tests 06/01/19 12:32 Laboratory Tests 06/01/19 12:32 EKG EKG [] Radiology/Procedures Radiology/Procedures []AP chest x-ray COMPARISON: Chest x-ray May 07, 2019. HISTORY: Shortness of breath. FINDINGS: Mild cardiomegaly stable. Mediastinal silhouette normal. No pneumothorax, pulmonary opacities or pleural effusions. Lower thoracic disc osteophytes are noted. IMPRESSION: No acute process. Mild cardiomegaly stable. Course & Med Decision Making Course & Med Decision Making Pertinent Labs and Imaging studies reviewed. (See chart for details) 1212: Patient seen for shortness of breath with congestive heart failure and has been off Lasix for approximately 20 days. We'll obtain labs, chest x-ray, EKG and give 20 mg of IV Lasix. 1331: Patient's laboratory analysis is completed and she does have some elevation in her BNP but not to the extent when she was admitted at the beginning of the month. Her creatinine is 1.9 which is close to her baseline. She does appear slightly fluid overloaded so she has been given 20 g of IV Lasix and I would recommend that she continue to take her Lasix daily until she sees her primary care physician on Monday at which time they can reevaluate the need for ongoing oral therapy. Patient is stable for discharge at this time. Dragon Disclaimer Dragon Disclaimer This electronic medical record was generated, in whole or in part, using a voice recognition dictation system. Departure Departure Impression: Primary Impression: CHF (congestive heart failure) Disposition: HOME, SELF-CARE Condition: STABLE Referrals: YUKI KEMP MD (PCP) See your doctor on Monday as scheduled. Patient Instructions: Heart Failure Additional Instructions: Continue to take her Lasix daily until you see her doctor on Monday and then discuss ongoing therapy. PIOTR WAGNER DO Jun 01, 2019 12:13
[2019-06-01] MEDS ORDERED: FUROSEMIDE 20 MG/2 ML VIAL. IVP ONE (12:15)
[2019-06-01 12:48] LABS: BASO # 0.1 x10^3/uL (0.0-0.2); BASO % 1 % (0-3); EOS # 0.3 x10^3/uL (0.0-0.7); EOS % 4 % (0-3); HEMOGLOBIN 12.2 g/dL (12.0-15.5); LYMPH # 1.6 x10^3/uL (1.0-4.8); LYMPH % 17 % (24-48); MEAN CORPUSCULAR HEMOGLOBIN 31 pg (25-35); MEAN CORPUSCULAR HGB CONC 33 g/dL (31-37); MEAN CORPUSCULAR VOLUME 94 fL (79-100); MONO # 0.8 x10^3/uL (0.0-1.1); MONO % 8 % (0-9); NEUT # 6.9 x10^3/uL (1.8-7.7); NEUT % 71 % (31-73); PLATELET COUNT 204 x10^3/uL (140-400); RED BLOOD COUNT 3.94 x10^6/uL (3.50-5.40); RED CELL DISTRIBUTION WIDTH 15.6 % (11.5-14.5); WHITE BLOOD COUNT 9.7 x10^3/uL (4.0-11.0)
--- NOTE | 2019-06-01 13:00 | RAD ---
AP chest x-ray COMPARISON: Chest x-ray May 07, 2019. HISTORY: Shortness of breath. FINDINGS: Mild cardiomegaly stable. Mediastinal silhouette normal. No pneumothorax, pulmonary opacities or pleural effusions. Lower thoracic disc osteophytes are noted. IMPRESSION: No acute process. Mild cardiomegaly stable. Electronically signed by: Simon Howard MD (06/01/2019 12:57 PM) [id number]
[2019-06-01 13:06] LABS: CALCIUM 9.1 mg/dL (8.5-10.1); CREATININE 1.9 mg/dL (0.6-1.0); GFR 25.4; POTASSIUM 4.3 mmol/L (3.5-5.1)
[2019-06-01 13:32] VITALS: BP 162/83
--- NOTE | 2019-06-01 22:07 | EKG ---
[facility] [address] [place] [address] Test Date: 2019-06-01 Test Time: 12:13:10 Pat Name: KENDY REYES Department: Room: Gender: F Integrated [employer] Specialist: : 1940 Requested By: PIOTR WAGNER Order Number: [id number] Reading MD: Measurements Intervals [place] Rate: 58 P: 47 VT: 180 QRS: 7 QRSD: 98 T: 27 QT: 552 QTc: 547 Interpretive Statements SINUS RHYTHM VENTRICULAR PREMATURE COMPLEX(ES) T ABNORMALITY IN INFERIOR LEADS PROLONGED QT ABNORMAL ECG RI6.01 No previous ECG available for comparison
== END 2019-06-01 14:44 | disposition home or self-care (01) ==
LOC: ER 11:41
DX: I11.0 Hypertensive heart disease with heart failure (principal); I50.9 Heart failure, unspecified; R06.02 Shortness of breath; R63.5 Abnormal weight gain; R60.0 Localized edema; E11.40 Type 2 diabetes mellitus with diabetic neuropathy, unspecified; E03.9 Hypothyroidism, unspecified; G89.29 Other chronic pain; K52.9 Noninfective gastroenteritis and colitis, unspecified; Z90.89 Acquired absence of other organs; Z90.710 Acquired absence of both cervix and uterus; Z98.890 Other specified postprocedural states; Z88.2 Allergy status to sulfonamides; Z88.6 Allergy status to analgesic agent
CPT/HCPCS: 36415; 71045; 80048; 83880; 84484; 85025; 93005; 96374; 99285; J1940